=== PATIENT | female | born 1965 | race African-American/Black ===

== ENCOUNTER 2023-02-24 15:39 | Inpatient (IN) | payer OTHER, BC ==
--- OUTSIDE RECORDS SUMMARY | 2023-02-24 15:56 | XMS REPORT | Continuity of Care Document ---
:1965 Author Organization [facility] t Address [address] [place] [address] [place] [id number] Care Team Providers Name Role Phone Daphne Moncada Primary Care Physician PENG WATTS Attending Clinician Unavailable YAO BRADSHAW Attending Clinician Unavailable Bello CASTRO, [facility] Attending Clinician DAPHNE MONCADA Attending Clinician Unavailable MICHELLE MARADIAGA Attending Clinician Unavailable IGOR MELENDEZ Attending Clinician Unavailable Lacey Mo MA Attending Clinician Unavailable Yao Bradshaw MD Attending Clinician Livia Mccartney MA Attending Clinician Unavailable Handy Beavers APRN Attending Clinician BETHANIE CIFUENTES Attending Clinician Unavailable PENG WATTS M.D. Attending Clinician Unavailable RUTHIE VERA Attending Clinician Unavailable Payers Payer Name Policy Type Policy Number Effective Date Expiration Date S ource BCBSTX PPO [id number] 2004 00:00:00 BCBS FED SELECT [id number] 2004 00:00:00 Problems Condition Condition Condition Status Onset Resolution Last Treating Co mments Source Name Details Category Date Date Treatment Clinician Date Primary Primary Disease Active 2020-09 Last [facility] osteoarthr osteoarthr 0-31 [facility] itis of itis of 00:00: t & Plan: both knees both knees 00 Formattin g of this note might be different from the original. Patient tolerated procedure well. Patient instructe d to return immediate ly for increased pain, swelling, difficult y walking or any other concerns. In the meantime, will follow up next week for next injection in the series. She was not feeling any relief. We discussed that after this third shot if she still has no relief we may need to perform a steroid injection . 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 06-01 00:00: Hospita 00 l Mixed Mixed Disease Active [facility] hyperlipid hyperlipid 06-01 emia emia 00:00: Hospita 00 l Borderline Borderline Disease Active M [facility]i diabetes diabetes 06-01 00:00: Hospita 00 l Anxiety Anxiety Disease Active [facility] 06-01 00:00: Hospita 00 l Acute tear Acute tear Disease Active U T lateral lateral 5-26 Health meniscus, meniscus, 00:00: right, right, 00 initial initial encounter encounter Arthritis Arthritis Disease Active [facility] of left of left 4-28 Health knee knee 00:00: 00 Chondromal Chondromal Disease Active U T acia of acia of 3-21 Health patella, patella, 00:00: right right 00 Localized Localized Disease Active Last UT primary primary 3- Assessmen Healt h osteoarthr osteoarthr 00:00: t & Plan: itis of itis of 00 Formattin lower leg, lower leg, g of this right right note might be different from the original. Discussed with Renea Wing cristal stiles treatment options for osteoarth ritis. Treatment included pain medicatio n (NSAID's and topicals) , bracing, physical therapy, cortisone injection s, hyaluroni c acid, PRP, and bone grafting. We discussed the CANTRELL injection s and patient will let me know if she would like to try. Acute pain Acute pain Disease Active U T of both of both 3- Health knees knees 00:00: 00 Acute pain Acute pain Disease Active [facility] T of both of both 3-02 Health knees knees 00:00: 00 Bilateral Bilateral Disease Active [facility] carotid carotid 2-18 st bruits bruits 00:00: Hospita 00 l SOB SOB Disease Active [facility] (shortness (shortness 2-18 st of breath) of breath) 00:00: Ho spita 00 l Elevated Elevated Disease Active [facility] di liver liver [address] enzymes enzymes 00:00: Hospita 00 l Acute Acute Disease Active [facility] medial medial 4-05 Health meniscal meniscal 00:00: tear, tear, 00 right, right, initial initial encounter encounter Apnea Apnea Disease Active [facility] 6 st 00:00: Hospita 00 l Family Family Disease Active Overview: Method i history of history of 02-[address] heart heart 00:00: g of this Hospita disease disease 00 note l might be different from the original. mother - CHF, sister - SD, sister- pacemaker Essential Essential Disease Active [facility] hypertensi hypertensi 3-15 st on on 00:00: Hospita 00 l Primary Primary Disease Active [facility] insomnia insomnia 3-15 st 00:00: Hospita 00 l Stress Stress Disease Active [facility] 3-15 st 00:00: Hospita 00 l Palpitatio Palpitatio Disease Active M ethodi ns ns 3-15 st 00:00: Hospita 00 l Chronic Chronic Disease Active [facility] pain of pain of 3-15 st right knee right knee 00:00: Ho spita 00 l Maltrackin Maltrackin Disease Active U T g of right g of right 10-11 He alth patella patella 00:00: 00 KNEE PAIN, KNEE Condition Active 2014-12-13 [facility] RIGHT PAIN, 12-13 08:57:11 l RIGHT 00:00: Trevon Active 00 12/13/2014 Condition 12/13/2014 [facility] Group SCREENING SCREENING Condition Active 2014-12-13 [facility] FOR FOR 06-06 08:57:11 l MALIGNANT MALIGNANT 00:00: Herm nella NEOPLASM NEOPLASM 00 OF THE OF THE CERVIX CERVIX Active 06/06/2014 Condition 12/13/2014 Medical Group LEUKORRHEA LEUKORRHE Condition Active 2014-12-13 Memoria A Active 06-06 08:57:11 l 06/06/2014 00:00: Robles n Condition 00 12/13/2014 Medical Group HEADACHE HEADACHE Condition Active 2014-12-13 Memoria Active 05-06 08:57:11 l 05/06/2014 00:00: Robles n Condition 00 12/13/2014 Medical Group PARESTHESI PARESTHES Condition Active 2014-12-13 [facility]oria IAS Active 05-06 08:57:11 l 05/06/2014 00:00: Robles n Condition 00 12/13/2014 Medical Group ANXIETY ANXIETY Condition Active 2014-12-13 Memoria Active 02-01 08:57:11 l 02/01/2014 00:00: Robles n Condition 00 12/13/2014 Medical Group IRREGULAR IRREGULAR Condition Active 2014-12-13 [facility] MENSES MENSES 12-10 08:57:11 l Active 00:00: Trevon 12/10/2013 00 Condition 12/13/2014 Medical Group LOW BACK LOW BACK Condition Active 2014-12-13 [facility] PAIN PAIN 12-10 08:57:11 l Active 00:00: Tervon 12/10/2013 00 Condition 12/13/2014 Medical Group B12 B12 Condition Active 2014-12-13 Mem oria DEFICIENCY DEFICIENCY 11-02 08:57:11 l Active 00:00: Trevon 11/02/2013 00 Condition 12/13/2014 Medical Group HYPERTENSI HYPERTENS Condition Active 2012-092014-12-13 Memoria ON ION Active 11-11 08:57:11 l 09/10/2013 00:00: Robles eduardo Condition 00 12/13/2014 Medical Group DIZZINESS DIZZINESS Condition Active 2012-092014-12-13 Memoria Active 11-11 08:57:11 l 09/10/2013 00:00: Robles eduardo Condition 00 12/13/2014 Medical Group TOBACCO TOBACCO Condition Active 2012-092014-12-13 [facility] USER USER 11-11 08:57:11 l Active 00:00: Trevon 09/10/2013 00 Condition 12/13/2014 Medical Group CORONARY CORONARY Condition Active 2012-092014-12-13 [facility] ARTERY ARTERY 11-11 08:57:11 l DISEASE, DISEASE, 00:00: Robles eduardo FAMILY HX FAMILY HX 00 Active 09/10/2013 Condition 12/13/2014 Medical Group OVARIAN OVARIAN Condition Active 2011-092014-12-13 [facility]oria CYST, CYST, 0-24 08:57:11 l RIGHT RIGHT 00:00: Trevon Active 00 07/08/2012 Condition 12/13/2014 Medical Group HEARTBURN HEARTBURN Condition Active 2011-092014-12-13 Memoria Active 0-15 08:57:11 l 06/29/2012 00:00: Robles n Condition 00 12/13/2014 Medical Group VARICOSE VARICOSE Condition Active 2011-092014-12-13 Mem[facility] VEINS VEINS 0-15 08:57:11 l LOWER LOWER 00:00: Trevon EXTREMITIE EXTREMITIE 00 S S W/INFLAMMA W/INFLAMMA TION TION Active 06/29/2012 Condition 12/13/2014 Medical Group DISTURBANC DISTURBAN Condition Active 2011-092014-12-13 Memoria E OF SKIN CE OF SKIN 0-15 08:57:11 l SENSATION SENSATION 00:00: Herm nella Active 00 06/29/2012 Condition 12/13/2014 [facility] Group Acute Acute Problem Active [facility] medial medial Physici meniscal meniscal ans tear, tear, right, right, subsequent subsequent encounter encounter Acute Acute Problem Active UT lateral lateral Physici meniscus meniscus ans tear of tear of right right knee, knee, subsequent subsequent encounter encounter Localized Localized Problem Active UT primary primary Physici osteoarthr osteoarthr an s itis of itis of lower leg, lower leg, right right History of History of Problem Resolve UT back pain back pain d Phys ici ans Arthritis Arthritis Problem Active UT of left of left Physici knee knee ans History of History of Problem Resolve UT hypertensi hypertensi d Ph ysici on on ans Maltrackin Maltrackin Problem Active U T g of right g of right Ph ysici patella patella ans Limb pain Limb pain Problem Active UT Physici ans Acute Acute Problem Active UT medial medial Physici meniscal meniscal ans tear, tear, right, right, initial initial encounter encounter Acute Acute Problem Active UT lateral lateral Physici meniscal meniscal ans tear, tear, right, right, initial initial encounter encounter Acute pain Acute pain Problem Active U T of both of both Physici knees knees ans Chondromal Chondromal Problem Active U T acia of acia of Physici patella, patella, ans right right History of Past Illness Condition Condition Condition Status Onset Resolution Last Treating Co mments Source Name Details Category Date Date Treatment Clinician Date ROUTINE ROUTINE Condition Inactiv 2014-12-13 2014-12-13 [facility] GYNECOLOGI GYNECOLOGI e 05-06 08:57:11 08:57:11 l KATELIN KATELIN 00:00: Trevon EXAMINATIO EXAMINATIO 00 N N Inactive 05/06/2014 Condition 12/13/2014 [facility] Group SCREENING SCREENING Condition Inactiv 2014-12-13 2014-12-13 [facility] FOR FOR e 05-06 08:57:11 08:57:11 l DIABETES DIABETES 00:00: Robles n MELLITUS MELLITUS 00 Inactive 05/06/2014 Condition 12/13/2014 [facility] Group SCREENING SCREENING Condition Inactiv 2014-12-13 2014-12-13 [facility] FOR MLIG FOR MLIG e 12-11 08:57:11 08:57:11 l NEOP, NEOP, 00:00: Trevon BREAST, BREAST, 00 NOS NOS Inactive 12/11/2012 Condition 12/13/2014 Medical Group PELVIC PELVIC Condition Inactiv 2011-092014-12-13 2014-12-13 [facility] PAIN PAIN e 0-15 08:57:11 08:57:11 l Inactive 00:00: Trevon 06/29/2012 00 Condition 12/13/2014 Medical Group HIP PAIN, HIP PAIN, Condition Inactiv 2011-092014-12-13 2014-12-13 [facility] RIGHT RIGHT e 0-15 08:57:11 08:57:11 l Inactive 00:00: Trevon 06/29/2012 00 Condition 12/13/2014 Medical Group VACCINE VACCINE Condition Inactiv 2011-092014-12-13 2014-12-13 [facility] AGAINST AGAINST e 0-15 08:57:11 08:57:11 l INFLUENZA INFLUENZA 00:00: Sergei carmen Inactive 00 06/29/2012 Condition 12/13/2014 Medical Group TRANSAMINA TRANSAMIN Condition Inactiv 2011-2014-12-13 2014-12-13 [facility] SES, ASES, e 03-30 08:57:11 08:57:11 l SERUM, SERUM, 00:00: Trevon ELEVATED ELEVATED 00 Inactive 03/30/2012 Condition 12/13/2014 Medical Group PHYSICAL PHYSICAL Condition Inactiv 2014-12-13 2014-12-13 [facility] EXAMINATIO EXAMINATIO e 03-20 08:57:11 08:57:11 l N N Inactive 00:00: Robles eduardo 03/20/2012 00 Condition 12/13/2014 Medical Group VITAMIN D VITAMIN D Condition Inactiv 2014-12-13 2014-12-13 [facility] DEFICIENCY DEFICIENCY e 03-20 08:57:11 08:57:11 l Inactive 00:00: Trevon 03/20/2012 00 Condition 12/13/2014 Medical Group FATIGUE FATIGUE Condition Inactiv 2014-12-13 2014-12-13 [facility] Inactive e 03-20 08:57:11 08:57:11 l 03/20/2012 00:00: Robles eduardo Condition 00 12/13/2014 Medical Group GYNECOLOGI GYNECOLOG Condition Inactiv 2014-12-13 2014-12-13 [facility] KATELIN ICAL e 03-20 08:57:11 08:57:11 l EXAMINATIO EXAMINATIO 00:00: Bhaskar Eduardo ROUTINE N ROUTINE 00 Inactive 03/20/2012 Condition 12/13/2014 Medical Group NEED PROPH NEED Condition Inactiv 2014-12-13 2014-12-13 [facility] VAC W/COMB PROPH VAC e 03-20 08:57:11 08:57:11 l DIPHTH-TET W/COMB 00:00: Robles eduardo ANUS-PERTU DIPHTH-TET 00 SS VAC ANUS-PERTU SS VAC Inactive 03/20/2012 Condition 12/13/2014 Medical Group Allergies, Adverse Reactions, Alerts Allergy Allergy Status Severity Reaction(s) Onset Inactive Treating Comm ents Source Name Type Date Date Clinician NO KNOWN Drug Active Univers [facility]ERG[facility] Family History Family Member Diagnosis Comments Start Date Stop Date Source Unknown Family Family history of Family History [facility] Member diabetes mellitus Unknown Family Family history of Family History [facility] Heart trouble Unknown Family Family history of Family History [facility] High blood pressure (not hypertension) Natural father Heart attack [facility] Natural mother [facility] Social History Social Habit Start Date Stop Date Quantity Comments Source History of tobacco Smokes tobacco [facility] use daily Hospital Gender identity [facility] Sexual orientation [facility] Exposure to Not sure [facility] SARS-CoV-2 (event) Alcohol intake 2023-01-29 2023-01-29 Current drinker [facility] 00:00:00 00:00:00 of alcohol Hospital (finding) History of Social 2023-01-29 2023[facility]01-29 [facility] Hospital Cigarettes smoked 2022-06-07 2022-06-07 [facility] current (pack per 00:00:00 00:00:00 Hospita l day) - Reported Tobacco use and 2022-06-07 2022-06-07 Smokeless [facility] exposure 00:00:00 00:00:00 tobacco non-user Hospital Sex Ass[birth year] At [birth year] [facility] 00:00:00 00:00:00 Hospital Smoking Status Start Date Stop Date Source Smokes tobacco daily 2022-06-07 00:00:00 [facility] Occasional tobacco smoker 2021-02-07 00:00:00 [facility] Medications Ordered Filled Start Stop Current Ordering Indication Dosage Frequency Signature Comments Components Source Medication Medication Date Date Medication? Clinician (SIG) Name Name apixaban Yes 2.5mg Q.5D Take 2.5 Meth samir (ELIQUIS) 5 5-[address] mg tablet 13:16: mouth 2 Hospi ta 30 (two) l times a day. famciclovir Yes 500mg QD Take 1 [facility] (FAMVIR) 5-[address] 500 MG 13:16: (500 mg Hospita tablet 30 total) by l mouth daily. dexamethaso Yes 40mg Q7D Take 10 [facility] ne 5-[address] (DECADRON) 13:16: (40 mg Hospi ta 4 MG tablet 30 total) by l mouth once a week. weekly daratumumab Yes Infuse Meth samir (Darzalex) 5-[address] 20 mg/mL 13:16: venous Hospita solution 30 catheter. l Inject every once a month lenalidomid 2022- No 10mg QD Take 10 mg [facility] e 01-[address] (REVLIMID) 15:56: 00:00 daily. 21 H ospita 10 mg 00 :00 on and 7 l capsule days off ixazomib 2022- No 4mg Q1W Take 4 mg Met [facility] (Ninlaro) 4 01-[address] mg capsule 14:40: 00:00 every 7 Hos janiya 30 :00 days. l gabapentin Yes 300mg QD Take 1 Meth samir (NEURONTIN) 01-[address] 300 mg 00:00: (300 mg Hospita capsule 00 total) by l mouth nightly. For leg numbness losartan-hy Yes [id number] 1{tbl} QD Take 1 [facility] drochloroth 01-[address] iazide 00:00: mouth Hospita (HYZAAR) 00 daily. l 100-25 mg per tablet ALPRAZolam 2023- Yes [id number] .5mg QD Take 1 [facility] (Xanax) 0.5 01-[address] MG tablet 00:00: 04:59 (0.5 mg Hosp christa 00 :00 total) by l mouth nightly as needed for anxiety. zolpidem 2023- Yes [id number] 10mg QD Take 1 M ethodi (AMBIEN) 10 01-10 tablet (10 s t mg tablet 00:00: 04:59 mg total) Ho spita 00 :00 by mouth l nightly as needed for sleep. scopolamine 2022- No 1{patch Q72H Place 1 [facility] (Transderm- 12-17 } patch on st Scop) 1 mg 00:00: 00:00 the skin Ho spita over 3 days 00 :00 every l third day. losartan-hy 2022- No [id number] 1{tbl} QD Take 1 [facility] drochloroth 10-[address] iazide 00:00: 00:00 mouth Hospita (HYZAAR) 00 :00 daily. l 100-25 mg per tablet ALPRAZolam 2022- No [id number] .5mg QD Take 1 [facility] (Xanax) 0.5 06-[address] MG tablet 00:00: 00:00 (0.5 mg [facility]osp [facility]a 00 :00 total) by l mouth nightly as needed for anxiety. zolpidem 2022- No [id number] 10mg QD Take 1 M ethodi (AMBIEN) 10 06-07 tablet (10 s t mg tablet 00:00: 00:00 mg total) Ho spita 00 :00 by mouth l nightly as needed for sleep. losartan-hy 2022- No [id number] TAKE 1 [facility] drochloroth 05-[address] iazide 00:00: 00:00 MOUTH Hospita (HYZAAR) 00 :00 EVERY DAY l 100-25 mg per tablet losartan-hy 2021- No [id number] TAKE 1 [facility] drochloroth 02-[address] iazide 00:00: 00:00 MOUTH Hospita (HYZAAR) 00 :00 EVERY DAY l 100-25 mg per tablet scopolamine 2021- No 1{patch Q72H Place 1 [facility] (Transderm- 5-16 07-22 } patch on st Scop) 1 mg 00:00: 00:00 the skin Ho spita over 3 days 00 :00 every l third day. ketoconazol Yes Apply to Me thodi e (NIZORAL) [address] 2 % cream 00:00: area once Hos janiya 00 daily for l 2 weeks zolpidem 2021- No [id number] 10mg QD Take 1 M ethodi (AMBIEN) 10 12-05 tablet (10 s t mg tablet 00:00: 00:00 mg total) Ho spita 00 :00 by mouth l nightly as needed for sleep. ALPRAZolam 2021- No [id number] .5mg QD Take 1 [facility] (Xanax) 0.5 12-[address] MG tablet 00:00: 00:00 (0.5 mg Hosp christa 00 :00 total) by l mouth nightly as needed for anxiety. Sodium 2020-09- No [id number] 25mg UT Hyaluronate 09-23 Health solution 19:15: 19:15 prefilled 55 :00 syringe 25 mg Sodium 2020-09- No [id number] 25mg UT Hyaluronate 09-23 Health solution 19:15: 19:15 prefilled 55 :00 syringe 25 mg Sodium 2020-09- No [id number] 25mg 25 mg, UT Hyaluronate 09-23 [facility] e[facility] solution 19:15: 19:15 cular, at prefilled 55 :00 2.5 mL/hr, syringe 25 Once PRN mg Procedure, Starting on Fri07/24/21 at 1315, For 1 dose Sodium 2020-09 No [id number] 25mg 25 mg, UT Hyaluronate 09-23 [facility]-con[facility] H ealth solution 19:15: 19:15 cular, at prefilled 55 :00 2.5 mL/hr, syringe 25 Once PRN mg Procedure, Starting on Fri07/24/21 at 1315, For 1 dose meloxicam 2020-09- No [id number] 15mg QD Take 1 UT (Mobic) 15 09-23 tablet (15 He alth MG tablet 00:00: 05:59 mg total) 00 :00 by mouth 1 (one) time each day. Sodium 2020-09- No [id number] 25mg UT Hyaluronate 09-16 Health solution 18:00: 18:00 prefilled 50 :00 syringe 25 mg Sodium 2020-09- No [id number] 25mg UT Hyaluronate 09-16 Health solution 18:00: 18:00 prefilled 50 :00 syringe 25 mg Sodium 2020-09- No [id number] 25mg 25 mg, UT Hyaluronate 09-16 [facility] e[facility] solution 18:00: 18:00 cular, at prefilled 50 :00 2.5 mL/hr, syringe 25 Once PRN mg Procedure, Starting on Fri07/17/21 at 1300, For 1 dose Sodium 2020-09- No [id number] 25mg 25 mg, UT Hyaluronate 09-16 [facility]-con[facility] e[facility] solution 18:00: 18:00 cular, at prefilled 50 :00 2.5 mL/hr, syringe 25 Once PRN mg Procedure, Starting on Fri07/17/21 at 1300, For 1 dose Sodium 2020-09- No [id number] 25mg UT Hyaluronate 0-26 - Health solution 18:23: 18:23 prefilled 16 :00 syringe 25 mg Sodium 2020-09- No [id number] 25mg UT Hyaluronate 0-26 07-10 Health solution 18:23: 18:23 prefilled 16 :00 syringe 25 mg Sodium 2020-09 No [id number] 25mg 25 mg, UT Hyaluronate 0-26 07-10 [facility] e[facility] solution 18:23: 18:23 cular, at prefilled 16 :00 2.5 mL/hr, syringe 25 Once PRN mg Procedure, Starting on Fri07/10/21 at 1323, For 1 dose Sodium 2020-09 No [id number] 25mg 25 mg, UT Hyaluronate 0-26 - [facility] e[facility] solution 18:23: 18:23 cular, at prefilled 16 :00 2.5 mL/hr, syringe 25 Once PRN mg Procedure, Starting on Fri07/10/21 at 1323, For 1 dose Supartz FX 2020-0 Yes [id number] INJECT ONE U T 25 MG/2.5ML 9-17 PRE-FILLED He alth solution 00:00: SYRINGE prefilled 00 INTRA-CONNOR syringe CULARLY INTO EACH KNEE WEEKLY FOR FIVE WEEKS. Supartz FX 2020-0 Yes [id number] INJECT ONE U T 25 MG/2.5ML 9-17 PRE-FILLED He alth solution 00:00: SYRINGE prefilled 00 INTRA-CONNOR syringe CULARLY INTO EACH KNEE WEEKLY FOR FIVE WEEKS. Supartz FX 2020-0 Yes [id number] INJECT ONE U T 25 MG/2.5ML 9-17 PRE-FILLED He alth solution 00:00: SYRINGE prefilled 00 INTRA-CONNOR syringe CULARLY INTO EACH KNEE WEEKLY FOR FIVE WEEKS. Supartz FX 2020-0 Yes [id number] INJECT ONE U T 25 MG/2.5ML 9-17 PRE-FILLED He alth solution 00:00: SYRINGE prefilled 00 INTRA-CONNOR syringe CULARLY INTO EACH KNEE WEEKLY FOR FIVE WEEKS. Supartz FX 2020-0 Yes [id number] INJECT ONE U T 25 MG/2.5ML 9-17 PRE-FILLED He alth solution 00:00: SYRINGE prefilled 00 INTRA-CONNOR syringe CULARLY INTO EACH KNEE WEEKLY FOR FIVE WEEKS. meloxicam 2020-0 Yes [id number] TAKE 1 U T (Mobic) 15 7-23 TABLET BY Heal th MG tablet 00:00: MOUTH 00 EVERY DAY NEEDED FOR PAIN meloxicam 2020-0 Yes [id number] TAKE 1 U T (Mobic) 15 7-23 TABLET BY Heal th MG tablet 00:00: MOUTH 00 EVERY DAY NEEDED FOR PAIN meloxicam 2020-0 Yes [id number] TAKE 1 U T (Mobic) 15 7-23 TABLET BY Heal th MG tablet 00:00: MOUTH 00 EVERY DAY NEEDED FOR PAIN meloxicam 2020-0 Yes [id number] TAKE 1 U T (Mobic) 15 7-23 TABLET BY Heal th MG tablet 00:00: MOUTH 00 EVERY DAY NEEDED FOR PAIN meloxicam 202-0 Yes [id number] TAKE 1 U T (Mobic) 15 7-23 TABLET BY Heal th MG tablet 00:00: MOUTH 00 EVERY DAY NEEDED FOR PAIN meloxicam 202-0 Yes [id number] TAKE 1 U T (Mobic) 15 7-23 TABLET BY Heal th MG tablet 00:00: MOUTH 00 EVERY DAY NEEDED FOR PAIN meloxicam 202-0 Yes [id number] TAKE 1 U T (Mobic) 15 7-23 TABLET BY Heal th MG tablet 00:00: MOUTH 00 EVERY DAY NEEDED FOR PAIN meloxicam 202-0 Yes [id number] TAKE 1 U T (Mobic) 15 7-23 TABLET BY Heal th MG tablet 00:00: MOUTH 00 EVERY DAY NEEDED FOR PAIN hydroCHLORO 2020-0 Yes 25mg 25 mg. UT thiazide 5-26 Health (HYDRODiuri 17:34: l) 25 MG 16 tablet losartan 2020-0 Yes 100mg 100 mg. UT (Cozaar) 5- Health 100 MG 17:34: tablet 16 hydroCHLORO 2020-0 Yes 25mg 25 mg. UT thiazide 5-26 Health (HYDRODiuri 17:34: l) 25 MG 16 tablet losartan 2020-0 Yes 100mg 100 mg. UT (Cozaar) 5-26 Health 100 MG 17:34: tablet 16 losartan 2021-0 Yes 100mg 100 mg. UT (Cozaar) 5-26 Health 100 MG 12:34: tablet 16 hydroCHLORO 202-0 Yes 25mg 25 mg. UT thiazide 5-26 Health (HYDRODiuri 12:34: l) 25 MG 16 tablet losartan 2020-0 Yes 100mg 100 mg. UT (Cozaar) 5-26 Health 100 MG 12:34: tablet 16 hydroCHLORO 2021-0 Yes 25mg 25 mg. UT thiazide 5-26 Health (HYDRODiuri 12:34: l) 25 MG 16 tablet losartan 202-0 Yes 100mg 100 mg. UT (Cozaar) 5-26 Health 100 MG 12:34: tablet 16 hydroCHLORO 202-0 Yes 25mg 25 mg. UT thiazide 5- Health (HYDRODiuri 12:34: l) 25 MG 16 tablet losartan 2020-0 Yes 100mg 100 mg. UT (Cozaar) 5-26 Health 100 MG 12:34: tablet 16 hydroCHLORO 202-0 Yes 25mg 25 mg. UT thiazide 5- Health (HYDRODiuri 12:34: l) 25 MG 16 tablet losartan 2020-0 Yes 100mg 100 mg. UT (Cozaar) 5-26 Health 100 MG 12:34: tablet 16 hydroCHLORO 2020-0 Yes 25mg 25 mg. UT thiazide 5- Health (HYDRODiuri 12:34: l) 25 MG 16 tablet losartan 2020-0 Yes 100mg 100 mg. UT (Cozaar) 5-26 Health 100 MG 12:34: tablet 16 hydroCHLORO 202-0 Yes 25mg 25 mg. UT thiazide 5-26 Health (HYDRODiuri 12:34: l) 25 MG 16 tablet losartan 202-0 Yes 100mg 100 mg. UT (Cozaar) 5-26 Health 100 MG 12:34: tablet 16 hydroCHLORO 2021-0 Yes 25mg 25 mg. UT thiazide 5-26 Health (HYDRODiuri 12:34: l) 25 MG 16 tablet losartan 2020-0 Yes 100mg 100 mg. UT (Cozaar) 5-26 Health 100 MG 12:34: tablet 16 hydroCHLORO 2021-0 Yes 25mg 25 mg. UT thiazide 5-26 Health (HYDRODiuri 12:34: l) 25 MG 16 tablet hydroCHLORO 2021-0 Yes 25mg 25 mg. UT thiazide 5-26 Health (HYDRODiuri 12:34: l) 25 MG 16 tablet losartan 2020-0 Yes 100mg 100 mg. UT (Cozaar) 5-26 Health 100 MG 12:34: tablet 16 famciclovir 2020-0 Yes 500mg QD Take 500 U T (Famvir) 5-25 mg by Health 500 MG 00:00: mouth 1 tablet 00 (one) time each day. dexamethaso 2021-0 Yes 40mg Take 40 mg UT ne 5-25 by mouth Health (Decadron) 00:00: every 7 4 MG tablet 00 (seven) days. apixaban 202-0 Yes 2.5mg Q12H Take 2.5 UT (Eliquis) 5 5-25 mg by Health MG tablet 00:00: mouth 00 every 12 (twelve) hours. famciclovir 2020-0 Yes 500mg QD Take 500 U T (Famvir) 5-25 mg by Health 500 MG 00:00: mouth 1 tablet 00 (one) time each day. dexamethaso 1-0 Yes 40mg Take 40 mg UT ne 5-25 by mouth Health (Decadron) 00:00: every 7 4 MG tablet 00 (seven) days. apixaban 1-0 Yes 2.5mg Q12H Take 2.5 UT (Eliquis) 5 5-25 mg by Health MG tablet 00:00: mouth 00 every 12 (twelve) hours. famciclovir 2020-0 Yes 500mg QD Take 500 U T (Famvir) 5-25 mg by Health 500 MG 00:00: mouth 1 tablet 00 (one) time each day. dexamethaso 2021-0 Yes 40mg Take 40 mg UT ne 5-25 by mouth Health (Decadron) 00:00: every 7 4 MG tablet 00 (seven) days. apixaban 2021-0 Yes 2.5mg Q12H Take 2.5 UT (Eliquis) 5 5-25 mg by Health MG tablet 00:00: mouth 00 every 12 (twelve) hours. famciclovir 2021-0 Yes 500mg QD Take 500 U T (Famvir) 5-25 mg by Health 500 MG 00:00: mouth 1 tablet 00 (one) time each day. dexamethaso 2021-0 Yes 40mg Take 40 mg UT ne 5-25 by mouth Health (Decadron) 00:00: every 7 4 MG tablet 00 (seven) days. apixaban 2021-0 Yes 2.5mg Q12H Take 2.5 UT (Eliquis) 5 5-25 mg by Health MG tablet 00:00: mouth 00 every 12 (twelve) hours. famciclovir 2021-0 Yes 500mg QD Take 500 U T (Famvir) 5-25 mg by Health 500 MG 00:00: mouth 1 tablet 00 (one) time each day. dexamethaso 2021-0 Yes 40mg Take 40 mg UT ne 5-25 by mouth Health (Decadron) 00:00: every 7 4 MG tablet 00 (seven) days. apixaban 2021-0 Yes 2.5mg Q12H Take 2.5 UT (Eliquis) 5 5-25 mg by Health MG tablet 00:00: mouth 00 every 12 (twelve) hours. famciclovir 2021-0 Yes 500mg QD Take 500 U T (Famvir) 5-25 mg by Health 500 MG 00:00: mouth 1 tablet 00 (one) time each day. dexamethaso 2021-0 Yes 40mg Take 40 mg UT ne 5-25 by mouth [facility] (Decadron) 00:00: every 7 4 MG tablet 00 (seven) days. apixaban 2021-0 Yes 2.5mg Q12H Take 2.5 UT (Eliquis) 5 5-25 mg by Health MG tablet 00:00: mouth 00 every 12 (twelve) hours. famciclovir 2021-0 Yes 500mg QD Take 500 U T (Famvir) 5-25 mg by [facility] 500 MG 00:00: mouth 1 tablet 00 (one) time each day. dexamethaso 2021-0 Yes 40mg Take 40 mg UT ne 5-25 by mouth [facility] (Decadron) 00:00: every 7 4 MG tablet 00 (seven) days. apixaban 2021-0 Yes 2.5mg Q12H Take 2.5 UT (Eliquis) 5 5-25 mg by Health MG tablet 00:00: mouth 00 every 12 (twelve) hours. famciclovir 2021-0 Yes 500mg QD Take 500 U T (Famvir) 5-25 mg by Health 500 MG 00:00: mouth 1 tablet 00 (one) time each day. dexamethaso 2021-0 Yes 40mg Take 40 mg UT ne 5-25 by mouth [facility] (Decadron) 00:00: every 7 4 MG tablet 00 (seven) days. apixaban 2021-0 Yes 2.5mg Q12H Take 2.5 UT (Eliquis) 5 5-25 mg by Health MG tablet 00:00: mouth 00 every 12 (twelve) hours. famciclovir 2021-0 Yes 500mg QD Take 500 U T (Famvir) 5-25 mg by [facility] 500 MG 00:00: mouth 1 tablet 00 (one) time each day. dexamethaso 2021-0 Yes 40mg Take 40 mg UT ne 5-25 by mouth [facility] (Decadron) 00:00: every 7 4 MG tablet 00 (seven) days. apixaban 2021-0 Yes 2.5mg Q12H Take 2.5 UT (Eliquis) 5 5-25 mg by Health MG tablet 00:00: mouth 00 every 12 (twelve) hours. famciclovir 2021-0 Yes 500mg QD Take 500 U T (Famvir) 5-25 mg by [facility] 500 MG 00:00: mouth 1 tablet 00 (one) time each day. dexamethaso 2021-0 Yes 40mg Take 40 mg UT ne 5-25 by mouth [facility] (Decadron) 00:00: every 7 4 MG tablet 00 (seven) days. apixaban 2021-0 Yes 2.5mg Q12H Take 2.5 UT (Eliquis) 5 5-25 mg by Health MG tablet 00:00: mouth 00 every 12 (twelve) hours. apixaban 2021-0 Yes 2.5mg Q12H Take 2.5 UT (Eliquis) 5 5-25 mg by Health MG tablet 00:00: mouth 00 every 12 (twelve) hours. famciclovir 2021-0 Yes 500mg QD Take 500 U T (Famvir) 5-25 mg by Health 500 MG 00:00: mouth 1 tablet 00 (one) time each day. dexamethaso 2021-0 Yes 40mg Take 40 mg UT ne 5-25 by mouth [facility] (Decadron) 00:00: every 7 4 MG tablet 00 (seven) days. Revlimid 10 2020-0 Yes UT MG capsule 5-24 Health 00:00: 00 Ninlaro 2.3 2020-0 Yes UT MG capsule 5-24 Health 00:00: 00 Revlimid 10 2020-0 Yes UT MG capsule 5-24 Health 00:00: 00 Ninlaro 2.3 2020-0 Yes UT MG capsule 5-24 Health 00:00: 00 Revlimid 10 2020-0 Yes UT MG capsule 5-24 Health 00:00: 00 Ninlaro 2.3 2020-0 Yes UT MG capsule 5-24 Health 00:00: 00 Revlimid 10 2020-0 Yes UT MG capsule 5-24 Health 00:00: 00 Ninlaro 2.3 2020-0 Yes UT MG capsule 5-24 Health 00:00: 00 Revlimid 10 2020-0 Yes UT MG capsule 5-24 Health 00:00: 00 Ninlaro 2.3 2020-0 Yes UT MG capsule 5-24 Health 00:00: 00 Revlimid 10 2020-0 Yes UT MG capsule 5-24 Health 00:00: 00 Ninlaro 2.3 2020-0 Yes UT MG capsule 5-24 Health 00:00: 00 Revlimid 10 2020-0 Yes UT MG capsule 5-24 Health 00:00: 00 Ninlaro 2.3 2020-0 Yes UT MG capsule 5-24 Health 00:00: 00 Revlimid 10 2020-0 Yes UT MG capsule 5-24 Health 00:00: 00 Ninlaro 2.3 2020-0 Yes UT MG capsule 5-24 Health 00:00: 00 Revlimid 10 2020-0 Yes UT MG capsule 5-24 Health 00:00: 00 Ninlaro 2.3 2020-0 Yes UT MG capsule 5-24 Health 00:00: 00 Revlimid 10 2020-0 Yes UT MG capsule 5-24 Health 00:00: 00 Ninlaro 2.3 2020-0 Yes UT MG capsule 5-24 Health 00:00: 00 Revlimid 10 2020-0 Yes UT MG capsule 5-24 Health 00:00: 00 Ninlaro 2.3 2020-0 Yes UT MG capsule 5-24 Health 00:00: 00 Meloxicam Meloxicam 2020-0 Yes HANDY TAKE 1 UT 15 MG Oral 15 MG Oral 4-27 SABBARA TABLET BY [facility] Tablet Tablet 00:00: PRINTED CIRCUIT BOARD PANELS DEBURRER MOUTH ans 00 DAILY NEEDED FOR PAIN zolpidem 2018-09- No 10mg QD Take 10 mg UT (Ambien) 10 18 05-26 by mouth 1 H ealth MG tablet 00:00: 04:59 (one) time 00 :00 each day. zolpidem 2018-09- No 10mg QD Take 10 mg UT (Ambien) 10 10-02 05-26 by mouth 1 H ealth MG tablet 00:00: 04:59 (one) time 00 :00 each day. zolpidem 2018-09- No 10mg QD Take 10 mg UT (Ambien) 10 10-02 05-26 by mouth 1 H ealth MG tablet 00:00: 04:59 (one) time 00 :00 each day. zolpidem 2018-09- No 10mg QD Take 10 mg UT (Ambien) 10 10-02 05-26 by mouth 1 H ealth MG tablet 00:00: 04:59 (one) time 00 :00 each day. zolpidem 2018-09- No 10mg QD Take 10 mg UT (Ambien) 10 10-02 05-26 by mouth 1 H ealth MG tablet 00:00: 04:59 (one) time 00 :00 each day. zolpidem 2018-09- No 10mg QD Take 10 mg UT (Ambien) 10 10-02 05-26 by mouth 1 H ealth MG tablet 00:00: 04:59 (one) time 00 :00 each day. zolpidem 2018-09- No 10mg QD Take 10 mg UT (Ambien) 10 10-02 05-26 by mouth 1 H ealth MG tablet 00:00: 04:59 (one) time 00 :00 each day. zolpidem 2018-09- No 10mg QD Take 10 mg UT (Ambien) 10 10-02 05-26 by mouth 1 H ealth MG tablet 00:00: 04:59 (one) time 00 :00 each day. zolpidem 2018-09- No 10mg QD Take 10 mg UT (Ambien) 10 10-02 05-26 by mouth 1 H ealth MG tablet 00:00: 04:59 (one) time 00 :00 each day. zolpidem 2018-09- No 10mg QD Take 10 mg UT (Ambien) 10 10-02 by mouth 1 H ealth MG tablet 00:00: 04:59 (one) time 00 :00 each day. zolpidem 2018-09- No 10mg QD Take 10 mg UT (Ambien) 10-02 by mouth 1 H ealth MG tablet 00:00: 04:59 (one) time 00 :00 each day. ALPRAZolam 2018-09 Yes .5mg 0.5 mg. UT (Xanax) 0.5 0-06 Health MG tablet 00:00: 00 ALPRAZolam 2018-09 Yes .5mg 0.5 mg. UT (Xanax) 0.5 0-06 Health MG tablet 00:00: 00 ALPRAZolam 2018-09 Yes .5mg 0.5 mg. UT (Xanax) 0.5 0-06 Health MG tablet 00:00: 00 ALPRAZolam 2018-09 Yes .5mg 0.5 mg. UT (Xanax) 0.5 0-06 Health MG tablet 00:00: 00 ALPRAZolam 2018-09 Yes .5mg 0.5 mg. UT (Xanax) 0.5 0-06 Health MG tablet 00:00: 00 ALPRAZolam 2018-09 Yes .5mg 0.5 mg. UT (Xanax) 0.5 0-06 Health MG tablet 00:00: 00 ALPRAZolam 2018-09 Yes .5mg 0.5 mg. UT (Xanax) 0.5 0-06 Health MG tablet 00:00: 00 ALPRAZolam 2018-09 Yes .5mg 0.5 mg. UT (Xanax) 0.5 0-06 Health MG tablet 00:00: 00 ALPRAZolam 2018-09 Yes .5mg 0.5 mg. UT (Xanax) 0.5 0-06 Health MG tablet 00:00: 00 ALPRAZolam 2018-09 Yes .5mg 0.5 mg. UT (Xanax) 0.5 0-06 Health MG tablet 00:00: 00 ALPRAZolam 2018-09 Yes .5mg 0.5 mg. UT (Xanax) 0.5 0-06 Health MG tablet 00:00: 00 MEDROL Yes Take as Memoria (MISSY) 4 MG 3-31 directed l TABS 00:00: [place] ALPRAZOLAM Yes 1/2 - 1 Aquiles trudy 0.5 MG TABS 3-31 tablet l 00:00: once daily as needed for anxiety IBUPROFEN Yes 1 tablet Aquiles trudy 600 MG TABS 3-31 three l 00:00: times a [place] day as needed for pain MEDROL Yes Take as Memoria (MISSY) 4 MG 3-31 directed l TABS 00:00: ALPRAZOLAM Yes 1/2 - 1 Aquiles trudy 0.5 MG TABS 3-31 tablet l 00:00: once daily as needed for anxiety IBUPROFEN Yes 1 tablet Aquiles trudy 600 MG TABS 3-31 three l 00:00: times a [place] day as needed for pain METROGEL-VA Yes Insert one Memoria GINAL 0.75 9-24 applicator l % GEL 00:00: per vagina Robles n 00 at bedtime for 5 nights METROGEL-VA No Insert one Memoria GINAL 0.75 9-24 applicator l % GEL 00:00: per vagina Robles n 00 at bedtime for 5 nights METROGEL-VA Yes Insert one Memoria GINAL 0.75 9-24 applicator l % GEL 00:00: per vagina Robles n 00 at bedtime for 5 nights METROGEL-VA No Insert one Memoria GINAL 0.75 9-24 applicator l % GEL 00:00: per vagina Robles n 00 at bedtime for 5 nights ZOLPIDEM Yes 1 tablet Memor ia TARTRATE 10 9-22 at bedtime l MG TABS 00:00: as needed Mel nn 00 for insomnia ZOLPIDEM Yes 1 tablet Memor ia TARTRATE 10 9-22 at bedtime l MG TABS 00:00: as needed Mel nn 00 for insomnia ZOLPIDEM Yes 1 tablet Memor ia TARTRATE 10 9-22 at bedtime l MG TABS 00:00: as needed Mel nn 00 for insomnia ZOLPIDEM Yes 1 tablet Memor ia TARTRATE 10 9-22 at bedtime l MG TABS 00:00: as needed Mel nn 00 for insomnia VITAMIN D No Take 1 Memori a (ERGOCALCIF 9-07 capsule by Kwanji CLEMENCIA) 00:00: mouth Mel nn UNIT CAPS 00 every week for 12 weeks VITAMIN D No Take 1 Memori a (ERGOCALCIF 9-07 capsule by l CLEMENCIA) 00:00: mouth Mel nn UNIT CAPS 00 every week for 12 weeks DIFLUCAN No 1 tablet Memor ia TAB 150MG 8-22 po daily x l 00:00: 1 now, then repeat dose in 3 days DIFLUCAN No 1 tablet Memor ia TAB 150MG 8-22 po daily x l 00:00: 1 now, then repeat dose in 3 days DIAZEPAM 5 No 1/2 tab as M emoria MG TABS 5-20 needed for l 00:00: anxiety or muscle spasms LEXAPRO 10 No 1 tablet Mem oria MG TABS 5-20 daily for l 00:00: mood LEXAPRO 10 Yes 1 tablet Mem oria MG TABS 5-20 daily for l 00:00: mood DIAZEPAM 5 No 1/2 tab as M emoria MG TABS 5-20 needed for l 00:00: anxiety or [place] 00 muscle spasms LEXAPRO 10 Yes 1 tablet Mem oria MG TABS 5-20 daily for l 00:00: mood [place] 00 LEXAPRO 10 No 1 tablet Mem oria MG TABS 5-20 daily for l 00:00: mood AMRIX 15 MG No 1 tab po Me moria [id number] 3-28 in the l 00:00: evening [place] 00 around 4pm-6pm as needed for muscle pain AMRIX 15 MG No 1 tab po Me moria [id number] 3-28 in the l 00:00: evening [place] around 4pm-6pm as needed for muscle pain AMRIX 15 MG No 1 tab po Me moria [id number] 3-28 in the l 00:00: evening [place] 00 around 4pm-6pm as needed for muscle pain AMRIX 15 MG No 1 tab po Me moria [id number] 3-28 in the l 00:00: evening [place] 00 around 4pm-6pm as needed for muscle pain AMRIX 15 MG No 1 tab po Me moria [id number] 3-28 in the l 00:00: evening [place] 00 around 4pm-6pm as needed for muscle pain AMRIX 15 MG No 1 tab po Me moria [id number] 3-28 in the l 00:00: evening [place] 00 around 4pm-6pm as needed for muscle pain LOSARTAN 2012-09 Yes 1 tab po Memor ia POTASSIUM-H 2-27 qam for l CTZ 50-12.5 00:00: blood Mel nn MG TABS 00 pressure LOSARTAN 2012-09 Yes 1 tab po Memor ia POTASSIUM-H 2-27 qam for l CTZ 50-12.5 00:00: blood Mel nn MG TABS 00 pressure LOSARTAN 2012-09 Yes 1 tab po Memor ia POTASSIUM-H 2-27 qam for l CTZ 50-12.5 00:00: blood Mel nn MG TABS 00 pressure LOSARTAN 2012-09 Yes 1 tab po Memor ia POTASSIUM-H 2-27 qam for l CTZ 50-12.5 00:00: blood Mel nn MG TABS 00 pressure [facility] 2011-09 No 1 dose Memoria MISC 0-16 twice l 00:00: daily for [place] 00 14 days [facility] 2011-09 No 1 dose Memoria MISC 0-16 twice l 00:00: daily for [place] 14 days [facility] 2011-09 No 1 dose Memoria MISC 0-16 twice l 00:00: daily for [place] 00 14 days [facility] 2011-09 No 1 dose Memoria MISC 0-16 twice l 00:00: daily for [place] 00 14 days FLAGYL 500 No 1 tab po Mem oria MG TABS 7-17 bid x 7 l 00:00: days [place] 00 FLAGYL 500 No 1 tab po Mem oria MG TABS 7-17 bid x 7 l 00:00: Losartan Losartan Yes UT Potassium Potassium Physi ci 100 MG Oral 100 MG Oral a ns Tablet Tablet hydroCHLORO hydroCHLORO Yes U T thiazide 25 thiazide 25 P hysici MG Oral MG Oral ans Tablet Tablet Zolpidem Zolpidem Yes UT Tartrate 10 Tartrate 10 P hysici MG Oral MG Oral ans Tablet Tablet ALPRAZolam ALPRAZolam Yes UT 0.5 MG Oral 0.5 MG Oral P hysici Tablet Tablet ans Immunizations Ordered Immunization Filled Immunization Date Status Commen ts Source Name Name [facility] COVID19 MRNA 2021-01-22 Completed [facility] Com[facility] odist VACCINATION 00:00:00 [facility] dT (Diphtheria and 2012-03-20 Completed Memori al [place] Tetanus) booster 20:32:41 given dT (Diphtheria and 2012-03-20 Completed Mehran al [place] Tetanus) booster 20:32:41 dT (Diphtheria and 2012-03-20 Completed Memori al [place] Tetanus) booster 20:32:41 given dT (Diphtheria and 2012-03-20 Completed Memori al [place] Tetanus) booster 20:32:41 Vital Signs Vital Name Observation Time Observation Value Comments Source Respiratory rate 2023-01-29 18:16:00 20 /min [facility] Body height 2023-01-29 18:16:00 172.7 cm [facility] Body weight 2023-01-29 18:16:00 100.245 kg [facility] BMI 2023-01-29 18:16:00 33.60 kg/m2 [facility] Systolic blood 2023-01-10 19:19:00 132 mm[Hg] [facility] pressure Diastolic blood 2023-01-10 19:19:00 85 mm[facility]Hg[facility] pressure Heart rate 2023-01-10 19:19:00 87 /min [facility] Oxygen saturation in 2023-01-10 19:19:00 97 /min [facility] Arterial blood by Pulse oximetry Body temperature 2022-06-07 18:14:00 36.78 Kassie [facility] Weight 2020-12-27 09:05:00 219 [lb_av] [facility] Body mass index 2020-12-27 09:05:00 32.34 kg/m2 [facility] (BMI) [Ratio] Systolic blood 2019-11-17 10:39:00 136 mm[Hg] [facility] pressure Diastolic blood 2019-11-17 10:39:00 89 mm[Hg] [facility] pressure Body height 2019-11-17 10:39:00 69 [in_us] [facility] Weight 2019-11-17 10:39:00 210 [lb_av] [facility] Body mass index 2019-11-17 10:39:00 31.01 kg/m2 [facility] (BMI) [Ratio] Heart Rate 2019-11-17 10:39:00 72 /min [facility] Height 2014-12-13 13:57:11 [facility] [place] Weight 2014-12-13 13:57:11 [facility] [place] Temperature Oral (F) 2014-12-13 13:57:11 98.2 F [facility] [place] Systolic (mm Hg) 2014-12-13 13:57:11 Aquiles rial [place] Diastolic (mm Hg) 2014-12-13 13:57:11 Mem orial [place] Heart Rate 2014-12-13 13:57:11 [facility] [place] Height 2014-06-06 14:06:02 [facility] [place] Weight 2014-06-06 14:06:02 [facility] [place] Temperature Oral (F) 2014-06-06 14:06:02 96.9 F [facility] [place] Heart Rate 2014-06-06 14:06:02 [facility] [place] Systolic (mm Hg) 2014-06-06 14:06:02 Aquiles rial [place] Diastolic (mm Hg) 2014-06-06 14:06:02 Mem orial [place] Weight 2014-05-06 20:14:01 [facility] [place] Temperature Oral (F) 2014-05-06 20:14:01 96.8 F [facility] [place] Heart Rate 2014-05-06 20:14:01 [facility] [place] Systolic (mm Hg) 2014-05-06 20:14:01 Aquiles rial [place] Diastolic (mm Hg) 2014-05-06 20:14:01 Mem orial [place] Weight 2014-02-01 15:38:42 [facility] [place] Temperature Oral (F) 2014-02-01 15:38:42 97.3 F [facility] [place] Heart Rate 2014-02-01 15:38:42 [facility] [place] Systolic (mm Hg) 2014-02-01 15:38:42 Aquiles rial [place] Diastolic (mm Hg) 2014-02-01 15:38:42 Mem orial [place] Weight 2013-12-10 16:33:00 [facility] [place] Temperature Oral (F) 2013-12-10 16:33:00 97.8 F [facility] [place] Heart Rate 2013-12-10 16:33:00 [facility] [place] Systolic (mm Hg) 2013-12-10 16:33:00 Aquiles rial [place] Diastolic (mm Hg) 2013-12-10 16:33:00 Mem orial [place] Weight 2013-11-02 20:44:02 [facility] [place] Temperature Oral (F) 2013-11-02 20:44:02 97.3 F [facility] [place] Systolic (mm Hg) 2013-11-02 20:44:02 Aquiles rial [place] Diastolic (mm Hg) 2013-11-02 20:44:02 Mem orial [place] Heart Rate 2013-11-02 20:44:02 [facility] [place] Weight 2013-09-10 20:59:00 [facility] [place] Temperature Oral (F) 2013-09-10 20:59:00 97.9 F [facility] [place] Heart Rate 2013-09-10 20:59:00 [facility] [place] Systolic (mm Hg) 2013-09-10 20:59:00 Aquiles rial [place] Diastolic (mm Hg) 2013-09-10 20:59:00 Mem orial [place] Weight 2012-06-29 20:09:31 [facility] [place] Respitory Rate 2012-06-29 20:09:31 Memori al [place] Temperature Oral (F) 2012-06-29 20:09:31 98.1 F [facility] [place] Heart Rate 2012-06-29 20:09:31 [facility] [place] Systolic (mm Hg) 2012-06-29 20:09:31 Aquiles rial [place] Diastolic (mm Hg) 2012-06-29 20:09:31 Mem orial [place] Respitory Rate 2012-03-20 20:32:41 Memori al [place] Heart Rate 2012-03-20 20:32:41 [facility] [place] Systolic (mm Hg) 2012-03-20 20:32:41 Aquiles rial [place] Diastolic (mm Hg) 2012-03-20 20:32:41 Mem orial [place] Height 2012-03-20 20:32:41 [facility] [place] Weight 2012-03-20 20:32:41 Rosette Lester Temperature Oral (F) 2012-03-20 20:32:41 98.6 F [facility] Procedure Date / Time Performing Clinician Source Performed US DUPLEX VENOUS LOWER 2023-01-23 19:47:17 [facility] EXTREMITY BILATERAL THYROID STIMULATING 2023-01-10 20:29:00 Daphne Moncada [facility] HORMONE T4, FREE 2023-01-10 20:29:00 [facility] 2023-01-10 20:29:00 Antwan [facility] HEMOGLOBIN A1C 2023-01-10 20:29:00 [facility] METABOLIC 2023-01-10 20:29:00 [facility] LIPID PANEL 2023-01-10 20:29:00 [facility] IONIZED CALCIUM 2023-01-10 20:29:00 [facility] PHOSPHORUS LEVEL 2023-01-10 20:29:00 [facility]ONE 2023-01-10 20:29:00 Daphne Moncada [facility] MRI LUMBAR SPINE WO 2022-06-17 20:59:37 Daphne Moncada [facility] CONTRAST US THYROID 2022-06-17 19:58:25 [facility] BRE[facility]EN 2022-06-17 19:46:59 Daphne Moncada [facility] TOMOSYNTHESIS BILATERAL CBC WITH PLATELET AND 2022-06-07 19:12:00 Daphne Moncada [facility] DIFFERENTIAL COMPREHENSIVE METABOLIC 2022-06-07 19:12:00 [facility] HEMOGLOBIN A1C 2022-06-07 19:12:00 [facility] LIPID PANEL 2022-06-07 19:12:00 [facility] URINALYSIS SCREEN AND 2022-06-07 19:12:00 [facility] MICROSCOPY, WITH REFLEX TO CULTURE THYROID STIMULATING 2022-06-07 19:12:00 [facility] HORMONE IONIZED CALCIUM 2022-06-07 19:12:00 [facility] THYROGLOBULIN ANTIBODY 2022-06-07 19:12:00 [facility] T3, FREE 2022-06-07 19:12:00 [facility] T4, FREE 2022-06-07 19:12:00 [facility] PARATHYROID HORMONE 2022-06-07 19:12:00 [facility] PHOSPHORUS LEVEL 2022-06-07 19:12:00 [facility] MICROSCOPIC EXAMINATION 2022-06-07 19:12:00 [facility] CT BONE MARROW BX W ASP 2022-02-27 16:00:00 Leeann [facility] SAME SITE FLOW CYTOMETRY EVALUATION 2022-02-27 15:40:00 [facility] BCM CHROMOSOME ANALYSIS 2022-02-27 15:40:00 [facility] PANEL BCM MM FISH PANEL 2022-02-27 15:40:00 Tomas [facility] MISCELLANEOUS REFERRAL 2022-02-27 15:40:00 [facility] TEST SURGICAL PATHOLOGY 2022-02-27 15:40:00 [facility] REQUEST CBC WITH PLATELET AND 2022-02-27 14:27:00 [facility] DIFFERENTIAL PROTHROMBIN TIME WITH INR 2022-02-27 14:27:00 [facility] RETICULOCYTE COUNT 2022-02-27 14:27:00 [facility] ARTHROCENTESIS ASPIR&/INJ 2021-07-24 19:15:55 [facility] JT/BURSA W/O US BILATERAL ARTHROCENTESIS ASPIR&/INJ 2021-07-17 18:00:50 Livia [facility]ccartney [facility] MA[facility] JT/BURSA W/O US BILATERAL ARTHROCENTESIS ASPIR&/INJ 2021-07-10 18:23:16 [facility] MAJOR JT/BURSA W/O US BILATERAL [U] XR KNEE 3 VWS 2020-12-27 00:00:00 [facility] BILATERAL MR Knee wo contrast [id number] 2020-12-27 00:00:00 [facility] echocardiogram, complete 2013-09-29 06:00:00 [facility] makenna Lester smoking/tobacco 2012-03-20 20:32:41 [facility] Her cote cessation, patient education and counseling mammogram 2011-06-16 03:29:37 [facility] vaginal Pap smear results 2011-02-14 03:29:37 Ks radha Lester Plan of Care Planned Activity Planned Date Details Comments Source Future Scheduled 2023-02-23 Screening for [facility] Test 13:32:13 malignant neoplasm [facility] of colon (procedure) [code = 668986547] Future Scheduled 2023-02-23 Screening for [facility] Test 13:32:13 malignant neoplasm [facility] of colon (procedure) [code = 553214710] Future Scheduled 2023-02-23 Screening for [facility] Test 13:32:13 malignant neoplasm [facility] colon (procedure) [code = 386699179] Future Scheduled 2023-02-23 Pneumococcal [facility] Test 13:32:13 Vaccine: [facility] (0 to 5 Years) and At-Risk Patients (6 to 64 Years) (1 - PCV) [code = Pneumococcal Vaccine: Pediatrics (0 to 5 Years) and At-Risk Patients (6 to 64 Years) (1 - PCV)] Future Scheduled 2023-02-23 Screening for [facility] Test 13:32:13 malignant neoplasm [facility] of cervix (procedure) [code = 596095772] Future Scheduled 2023-02-23 INFLUENZA VACCINE Method ist Test 13:32:13 [code = INFLUENZA Hospital VACCINE] Future Scheduled 2023-02-23 BREAST CANCER [facility] Test 13:32:13 SCREENING [code = Hospital BREAST CANCER SCREENING] Future Scheduled 2023-02-23 COVID-19 VACCINE (3 Postponed from Me thodist Test 13:32:13 - Pfizer risk 02/19/2021 Hospital series) [code = (Patient Refused) COVID-19 VACCINE (3 - Pfizer risk series)] Future Scheduled 2023-02-23 SHINGLES VACCINES (1 Postponed from M ethodist Test 13:32:13 of 2) [code = 02/23/1984 Hospital SHINGLES VACCINES (1 (Patient Refused) of 2)] Future Scheduled 2023-02-23 Screening for [facility] Test 13:32:13 malignant neoplasm [facility] colon (procedure) [code = 061170172] Future Scheduled 2023-02-23 Screening for [facility] Test 13:32:13 malignant neoplasm [facility] colon (procedure) [code = 729145804] Encounters Start End Encounter Admission Attending Care Care Encounter Source Date/Time Date/Time Type Type Clinicians Facility Department ID 2021-06-22 Outpatient [facility] [id number] [place] 09:04:05 E, [facility] 2021-06-22 Outpatient [facility] [id number] [place] 09:01:47 E, [facility] 2023-02-17 2023-02-17 Outpatient YAO BRADSHAW MHBL MHBL [id number] BL 09:22:00 23:59:00 2023-01-29 2023-01-29 Office Spanish, 1.2.840.1 [id number] Methodi 13:30:00 13:56:24 Visit [facility] [id number] 3.430.2.7 Hospit a .3.177155 l .8 2023-01-29 2023-01-29 Outpatient [facility] [id number] 00:00:00 00:00:00 [facility] [address] 2023-01-29 2023-01-29 Travel 1.2.840.1 [id number] Methodi 00:00:00 00:00:[id number] 3.430.2.7 [id number] Ho spita .[id number] 084.8 l .8 2023-01-23 2023-01-23 Outpatient MONCADA, [facility] [id number] 00:00:00 00:00:00 [facility] [address] 2023-01-20 2023-01-20 Telephone Moncada, 1.2.840.1 [id number] Methodi 00:00:00 00:00:00 Zen[facility] [id number] 3.430.2.7 Hospit a .3.855367 l .8 2023-01-10 2023-01-10 Office Moncada, 1.2.840.1 [id number] [id number] 4559 Methodi 15:00:00 15:29:22 Visit Zenithe 77979.1.1 [address] 3.430.2.7 Hospit a .3.574870 l .8 2023-01-10 2023-01-10 Outpatient [facility] [id number] 00:00:00 00:00:[address] 2023-01-10 2023-01-10 Travel 1.2.840.1 1.2.295.897 6088 488912 Methodi 00:00:00 00:00:[address] 3.430.2.7 0.2.7.3.698 Ho spita .3.255048 084.8 l .8 2022-11-22 2022-11-22 Outpatient ASHWINI, MHBL MHBL 750 4 MHBL 09:10:00 10:48:00 [facility] 2022-11-07 2022-11-07 Emergency E CHUJungWUMA, MHBL MHBL [id number] MHBL 11:44:00 15:46:00 IGOR 2022-10-15 2022-10-15 Telephone Moncada, 1.2.840.1 [id number] 2099 [id number] Methodi 00:00:00 00:00:00 Zenithe 85749.1.1 [address] 3.430.2.7 Hospit a .3.319332 l .8 2022-10-15 2022-10-15 Refdhara Mo, 1.2.840.1 [id number] 2100 250789 Methodi 00:00:00 00:00:[address] 3.430.2.7 Hospit a .3.144147 l .8 2022-06-17 2022-06-17 Outpatient MONCADA, [facility] [id number] [address] 00:00:00 00:00:00 ZENITHE [address] i 2022-06-17 2022-06-17 Outpatient [facility] [facility] [id number] [address] [place] 00:00:00 00:00:00 ZENITHE 676 Method i 2022-06-17 2022-06-17 Outpatient [place], [facility] [id number] [place] 00:00:00 00:00:00 ZENITHE [address] 2022-06-17 2022-06-17 Travel 1.2.840.1 1.2.068.371 [id number] Methodi 00:00:00 00:00:[address] 3.430.2.7 0.2.7.3.698 Ho spita .3.592325 084.8 l .8 2022-06-07 2022-06-07 Office [place], 1.2.840.1 [id number] Methodi 13:00:00 14:09:38 Visit Daphne 57306.1.1 407 [place] 3.430.2.7 Hospit a .3.131777 l .8 2022-06-07 2022-06-07 Outpatient [place], [facility] [id number] [place] 00:00:00 00:00:00 ZENITHE [address] 2022-06-07 2022-06-07 Travel 1.2.840.1 1.2.069.462 [id number] [id number] Methodi 00:00:00 00:00:[address] 3.430.2.7 0.2.7.3.698 Ho spita .3.930872 084.8 l .8 2022-05-25 2022-05-25 Refill Antwan, 1.2.840.1 [id number] Methodi 00:00:00 00:00:00 Zenithe 96681.1.1 101 [place]leigh 3.430.2.7 Hospit a .3.933285 l .8 2022-04-05 2022-04-05 Telemedici Antwan, 1.2.840.1 [id number] Methodi 08:45:00 09:08:53 ne Zenithe 00825.1.1 249 [address]leigh 3.430.2.7 Hospit a .3.745125 l .8 2022-04-05 2022-04-05 Outpatient ANTWAN, [facility] [id number] [place] 00:00:00 00:00:00 ZENITHE [address] 2022-03-12 2022-03-12 Travel 1.2.840.1 1.2.503.778 4111 [id number] Methodi 00:00:00 00:00:[address] 3.430.2.7 0.2.7.3.698 Ho spita .3.243758 084.8 l .8 2022-02-27 2022-02-27 [facility] 1.2.840.1 [id number] Methodi 09:10:12 23:59:00 Encounter Qamrus 11532.1.[address] 3.430.2.7 Hospit a .3.764809 l .8 2022-02-27 2022-02-27 [facility] [id number] [place] 00:00:00 00:00:[address] 2022-02-27 2022-02-27 Travel 1.2.840.1 1.2.934.158 4087 [id number] Methodi 00:00:00 00:00:[address] 3.430.2.7 0.2.7.3.698 Ho spita .3.359960 084.8 l .8 2022-02-14 2022-02-14 Outpatient SALAM, AMIR [facility] [id number] [place] 00:00:00 00:00:[address] 2022-01-29 2022-01-29 Outpatient [place], [facility] [id number] [place] 00:00:00 00:00:00 ZENITHE [address] 2021-12-05 2021-12-05 Outpatient [facility] [id number] [address] [place] 00:00:00 00:00:[address] 2021-07-24 2021-07-24 Procedure Wisdom-Franz UTP [facility] 1.2.840.114 [id number] [place] 12:50:34 13:45:57 Visit e, Peng [place] 350.1.13.58 Health MEDICAL 9.2.7.2.686 PLAZA 2 [id number] 7 2021-07-17 2021-07-17 Procedure Wisdom-Franz UTP [facility] 1.2.840.114 [id number] [place] 12:54:04 13:25:03 Visit e, Peng AISHWARYA 350.1.13.58 Health MEDICAL 9.2.7.2.686 PLAZA 9 [id number] 7 2021-07-16 2021-07-16 Outpatient SALJADA, MIRR MHBL MHBL 750 3 MHBL 09:45:00 23:59:00 2021-07-10 2021-07-10 Office Wisdom-Franz UTP [facility] 1.2.840.114 12 [id number] [place] 13:04:19 14:02:15 Visit e, Peng [place] 350.1.13.58 Health MEDICAL 9.2.7.2.686 PLAZA 6 [id number] 2021-06-01 2021-06-01 Outpatient [place], [facility] [id number] [place] 00:00:00 00:00:00 ZENITHE [address] 2021-06-01 2021-06-01 Orders Livia Mccartney UTP [facility] 1.2.840.114 [id number] [place] 00:00:00 00:00:00 Only Livia Mccartney 350.1.13.58 Health MEDICAL 9.2.7.2.686 PLAZA 2 [id number] 7 2021-05-23 2021-05-23 Outpatient [place], [facility] [id number] [address] [place] 00:00:00 00:00:00 ZENITHE [address] 2021-05-23 2021-05-23 Outpatient [place], [facility] [id number] [address] [place] 00:00:00 00:00:00 ZENITHE [address] 2021-05-22 2021-05-22 Telephone Livia Mccartney [facility] 1.2.840.11 4 [id number] [place] 00:00:00 00:00:00 BibSalazarLivialaura NEFF 350.1.13.58 Health MEDICAL 9.2.7.2.686 PLAZA 6 [id number] 7 2021-04-06 2021-04-06 Refill ERIN Beavers [facility] 1.2.840.114 [id number] [place] 00:00:00 00:00:00 Handy NEFF 350.1.13.58 H ealth MEDICAL 9.2.7.2.686 PLAZA 5 [id number] 7 2021-04-06 2021-04-06 Refill ERIN Beavers [facility] 1.2.840.114 [id number] 00:00:00 00:00:00 Handy AISHWARYA 350.1.13.58 MEDICAL 9.2.7.2.686 PLAZA 8 [id number] 7 2021-03-15 2021-03-15 Outpatient YAO BRADSHAW MHSE MHSE 750 2 MH 14:17:00 23:59:00 [facility] 2021-03-07 2021-03-07 EXT MHH OP EXT MSRDP 1.2.840.114 1 [id number] [place] 00:00:00 00:00:00 LOCATION 350.1.13.58 H ealth 9.2.7.2.686 [id number] 2021-03-07 2021-03-07 EXT MHH OP EXT MSRDP 1.2.840.114 1 [id number] [place] 00:00:00 00:00:00 LOCATION 350.1.13.58 H ealth 9.2.7.2.686 [id number] 0 2021-02-07 2021-02-[address] [facility] 1.2.840.114 11 [id number] [place] 11:14:16 11:29:16 Visit e, Peng NEFF 350.1.13.58 Health MEDICAL 9.2.7.2.686 PLAZA 6 [id number] 2021-02-07 2021-02-07 [address] [facility] 1.2.840.114 11 [id number] 11:14:16 11:29:16 Visit e, Peng NEFF 350.1.13.58 MEDICAL 9.2.7.2.686 PLAZA 1 [id number] 7 2021-02-06 2021-02-06 Outpatient [facility] [id number] [address] [place] 00:00:00 00:00:00 242 Method i 2021-01-22 2021-01-22 Outpatient [facility] [id number] Univers 09:40:00 09:40:00 [facility] 2021-01-20 2021-01-20 Outpatient [facility] [id number] Univers 09:40:00 09:40:00 [facility] 2020-12-30 2020-12-30 Outpatient R [facility] [id number] Univers 09:35:00 09:35:00 [facility] 2020-12-27 2020-12-[facility] Orthopedics [id number] [place] 09:00:00 09:00:00 [facility] TORRES-BAR M.D. II ans PENG KAMARA M.D. 2020-09-28 2020-09-28 Outpatient CHUY [facility] [id number] [address] [place] 00:00:00 00:00:00 PREMAL [address] 2020-09-06 2020-09-06 Outpatient MONCADA [facility] [id number] [place] 00:00:00 00:00:00 ZENITHJorge A [address] 2020-06-14 2020-06-14 Outpatient [place], [facility] [id number] [address] [place] 00:00:00 00:00:00 ZENITHE 980 Method i 2020-05-29 2020-05-29 Outpatient ANTWAN, [facility] [id number] [place] 00:00:00 00:00:00 ZENITHE 847 Method i 2020-05-08 2020-05-08 Outpatient YAO BRADSHAW MHBL MHBL 750 1 MHBL 07:36:00 07:36:00 2020-04-14 2020-04-14 Outpatient ANTWAN, [facility] [id number] [place] 00:00:00 00:00:00 ZENITHE 699 Method i 2020-04-04 2020-04-04 Outpatient ANTWAN [facility] [id number] [place] 00:00:00 00:00:00 ZENITHE 775 Method i 2019-11-17 2019-11-17 [facility] ER[facility]STO KHAN Orthopedics [id number] [place] 10:00:00 10:00:00 [facility] TORRES-BAR M.D. II ans PENG KAMARA M.D. 2015-12-29 2015-12-29 Outpatient MHIE MHIE [id number] [place] 10:30:00 10:30:00 03 aden Lester 2015-12-29 2015-12-29 Outpatient MHIE [facility]IE [id number] [place] 10:30:00 10:30:00 03 aden Lester 2015-09-18 2015-09-18 Outpatient MHIE [facility]IE [id number] [place] 14:00:00 14:00:00 02 aden Lester 2015-09-18 2015-09-18 Outpatient MHIE [facility]IE [id number] [place] 14:00:00 14:00:00 02 aden Lester 2015-07-05 2015-07-05 Outpatient MHIE MHIE [id number] [place] 08:00:00 08:00:00 01 aden Lester 2015-07-05 2015-07-05 Outpatient MHIE MHIE [id number] [place] 08:00:00 08:00:00 01 aden Lester 2015-05-25 2015-05-25 Outpatient MHIE MHIE [id number] [place] 15:00:00 15:00:00 00 aden Lester 2015-05-25 2015-05-25 Outpatient [facility] [id number] Memoria 15:00:00 15:00:00 00 aden Lester 2014-12-13 2014-12-13 [facility] [id number] 430 [facility]oria 00:00:00 00:00:[id number] [facility] 2014-06-06 2014-06-06 [facility] [id number] 962 Memoria 00:00:00 00:00:[id number] [facility] 2014-05-20 2014-05-20 Lab Report [facility] 1725 [id number] Memoria 00:00:00 00:00:[id number] [facility] 2014-05-06 2014-05-06 [facility] [id number] [facility] 00:00:00 00:00:[address] [facility] 2014-02-01 2014-02-01 [facility] [id number] Memoria 00:00:00 00:00:[id number] [facility] 2013-12-13 2013-12-13 Lab Report [facility] 1711 [id number] Memoria 00:00:00 00:00:00 alon Lester [id number] [facility] 2013-12-10 2013-12-10 Office [facility]Flavo [facility] [id number] 580 [place] 00:00:00 00:00:[address] Lester [id number] [facility] Results Test Description Test Time Test Comments Results Result Comments Source Comprehensive metabolic panel 2023-01-12 10:41:00 Test Item Value Reference Range Interpretation Comme nts Glucose (test code = 151 mg/dL 70-99 H 2345-7) BUN (test code = 3094-0) 34 mg/dL 6-24 H Creatinine (test code = 1.12 mg/dL 0.57-1.00 H 2160-0) eGFR (test code = 84383-6) 57 mL/min/1.73 >=59 L BUN/creatinine ratio (test 30 9-23 H code = 3097-3) Sodium (test code = 139 mmol/L 906-296 9933-2) Potassium (test code = 4.3 mmol/L 3.5-5.2 2823-3) Chloride (test code = 102 mmol/L 96-106 2075-0) CO2 (test code = 2027-9) 23 mmol/L 20-29 Calcium (test code = 10.2 mg/dL 8.7-10.2 12280-9) Protein (test code = 6.4 g/dL 6.0-8.5 2885-2) Albumin, S (test code = 4.2 g/dL 3.8-4.9 1751-7) Globulin, total (test code 2.2 g/dL 1.5-4.5 = 40529-6) Albumin/globulin ratio 1.9 1.2-2.2 (test code = 1759-0) Total bilirubin (test code 0.3 mg/dL 0.0-1.2 = 1974-2) Alkaline phosphatase (test 79 See_Comment [Automated message] code = 6768-6) The system [employer] generated this result transmitted ref erence range: 44 - 121 IU/L. The reference r evie was not used to int erpret this result as normal/abnormal . AST (test code = 1920-8) 17 See_Comment [A utomated message] The system [employer] generated this result transmitted ref erence range: 0 - 40 I U/L. The reference range was not used to interpr et this result as normal/abnormal . ALT (test code = 1742-6) 50 See_Comment H [A utomated message] The system [employer] generated this result transmitted ref erence range: 0 - 32 I U/L. The reference range was not used to interpr et this result as normal/abnormal . EDDIE (test code = EDDIE) Performed at: [facility] Lab[address] [id number] Director: Jesus Polanco MD, Phone: [phone] Lab Interpretation (test Abnormal code = 00813-6) [facility] [id number] 10:41:00 Test Item Value Reference Range Interpretation Comments Cholesterol (test code = 251 mg/dL 100-199 H 2093-3) Triglycerides (test code 107 mg/dL 0-149 = 2571-8) HDL cholesterol (test 117 mg/dL >=39 code = 2085-9) VLDL cholesterol katelin 18 mg/dL 5-40 (test code = 44718-6) LDL Chol Calc (NIH) (test 116 mg/dL 0-99 H code = 77412-8) Non-HDL cholesterol (test 134 mg/dL 0-129 H code = 97514-9) EDDIE (test code = EDDIE) Performed at: [address] [place] [address] [id number] Director: Jesus Polanco MD, Phone: [phone] Lab Interpretation (test Abnormal code = 04195-9) [facility] HospitalIonized [id number] 10:41:00 Test Item Value Reference Range Interpretation Comments Ionized calcium (test 5.3 mg/dL 4.5-5.6 code = 80127-8) EDDIE (test code = EDDIE) Performed at: [address] [place] [address] [id number] Director: Jesus Polanco MD, Phone: [phone] [facility] HospitalHemoglobin [id number] 10:41:00 Test Item Value Reference Range Interpretation Comments Hemoglobin A1C (test 5.8 % 4.8-5.6 H Predia betes: code = 4548-4) 5.7 - 6.4 Diabetes: >6.4 Glycemic control for adults with diabetes: <7.0 EDDIE (test code = EDDIE) Performed at: [address] [place] [address] [id number] Director: Jesus Polanco MD, Phone: [phone] Lab Interpretation Abnormal (test code = 73752-4) [facility] HospitalParathyroid [id number] 10:41:00 Test Item Value Reference Range Interpretation Comments PTH (test code = 55 pg/mL 2731-8) EDDIE (test code = Performed at: ) [address] [id number] Director: Jesus Polanco MD, Phone: [phone] [facility] HospitalPhosphorus [id number] 10:41:00 Test Item Value Reference Range Interpretation Comments Phosphorus (test code = 2.5 mg/dL 3.0-4.3 L 2777-1) EDDIE (test code = EDDIE) Performed at: [address] [id number] Director: Jesus Polanco MD, Phone: [phone] Lab Interpretation (test Abnormal code = 53882-8) [facility] HospitalT4, [id number] 10:41:00 Test Item Value Reference Range Interpretation Comments T4, free (test code 0.97 ng/dL 0.82-1.77 = 3024-7) EDDIE (test code = Performed at: EDDIE) [address] [id number] Director: Jesus Polanco MD, Phone: [phone] [facility] HospitalThyroid stimulating [id number] 10:41:00 Test Item Value Reference Range Interpretation Comments TSH (test code = 0.118 See_Comment L [Automated 49914-1) message] The system which generated this result transmitted reference range : 0.450 - 4.500 uIU/mL. The reference range was not used to interpret this result as normal/abnormal . EDDIE (test code = EDDIE) Performed at: [address] [id number] Director: Jesus Polanco MD, Phone: [phone] Lab Interpretation Abnormal (test code = 89499-4) [facility] [id number] 10:41:00 Test Item Value Reference Range Interpretation Comments T3 (test code = 80 ng/dL 71-180 3053-6) EDDIE (test code = Performed at: ) [address] [id number] Director: Jesus Polanco MD, Phone: [phone] [facility] HospitalThyroglobulin [id number] 12:36:00 Test Item Value Reference Range Interpretation Comments Thyroglobulin Ab <1.0 See_Comment Thyroglobul in (test code = 8098-6) Antibod y measured by Danika Coul ter Methodology [Automated mess age] The system [employer] generated this result transmit pepito reference range : 0.0 - 0.9 IU/mL . The reference r evie was not used to interpret this result as normal/abnormal . EDDIE (test code = Performed at: EDDIE) - Lab[address] [id number] Director: Jesus Polanco MD, Phone: [phone] [facility] HospitalUrinalysis screen and microscopy, with reflex to culture 2022-06-09 12:36:00 Test Item Value Reference Range Interpretation Comments Specific gravity, 1.015 1.005-1.030 urine (test code = 5811-5) pH, urine (test 6.5 5.0-7.5 code = 5803-2) Color, UA (test Yellow Yellow code = 5778-6) Appearance (test Clear Clear code = 5767-9) WBC esterase, urine Negative Negative (test code = 5799-2) Protein, UA (test Negative Negative/Trace code = 27751-0) Glucose, urine Negative Negative (test code = 59218-0) Ketones, UA (test Negative Negative code = 2514-8) Occult blood, urine Negative Negative (test code = 5794-3) Bilirubin, UA (test Negative Negative code = 5770-3) Urobilinogen, UA 0.2 mg/dL 0.2-1.0 (test code = 16841-0) Nitrite, UA (test Negative Negative code = 5802-4) Microscopic See below: Microscopic was examination (test indicated and was code = 72071-8) performed. Urinalysis reflex Comment This speci men will (test code = 2386) not refle x to a Urine Culture. EDDIE (test code = Performed at: EDDIE) - LabCo[address] [id number] Director: Jesus Polanco MD, Phone: [phone] [facility] HospitalMicroscopic [id number] 12:36:00 Test Item Value Reference Range Interpretation Comments WBC, UA (test code None seen See_Comment [Automat ed = 5821-4) message] The system which generated this result transmit pepito reference range : 0 - 5 /hpf. The reference range was not used to interpret this result as normal/abnormal . RBC, UA (test code None seen See_Comment [Automat ed = 07003-4) message] The system which generated this result transmit pepito reference range : 0 - 2 /hpf. The reference range was not used to interpret this result as normal/abnormal . Epithelial cells 0-10 See_Comment [Automated (non renal) (test message] T he code = 5787-7) system which generated this result transmit pepito reference range : 0 - 10 /hpf. The reference range was not used to interpret this result as normal/abnormal . Casts (test code = None seen None seen /lpf 89611-5) Bacteria, UA (test None seen None seen/Few code = 5769-5) EDDIE (test code = Performed at: EDDIE) Lab[address] [id number] Director: Jesus Polanco MD, Phone: [phone] [facility] HospitalT3, [id number] 12:36:00 Test Item Value Reference Range Interpretation Comments T3, free (test code 2.1 pg/mL 2.0-4.4 = 3051-0) EDDIE (test code = Performed at: [facility]) [facility] [id number] Director: Jesus Polanco MD, Phone: [phone] [facility] with platelet and [id number] 12:36:00 Test Item Value Reference Range Interpretation Comments WBC (test code = 6.7 See_Comment [Automated 4390-2) message] The system which generated this result transmitted reference range : 3.4 - 10.8 x10E3/uL. The reference range was not used to interpret this result as normal/abnormal . RBC (test code = 4.18 See_Comment [Automated 059-8) message] The system which generated this result transmitted reference range : 3.77 - 5.28 x10E6/uL. The reference range was not used to interpret this result as normal/abnormal . HGB (test code = 12.6 g/dL 11.1-15.9 718-7) HCT (test code = 37.1 % 34.0-46.6 4544-3) MCV (test code = 89 fL 79-97 787-2) MCH (test code = 30.1 pg 26.6-33.0 785-6) MCHC (test code = 34.0 g/dL 31.5-35.7 786-4) RDW (test code = 14.5 % 11.7-15.4 788-0) Platelet count (test 368 See_Comment [Autom ated code = 777-3) message] The system which generated this result transmitted reference range : 150 - 450 x10E3/uL. The reference range was not used to interpret this result as normal/abnormal . Neutrophils (test 91 % Not Estab. code = 770-8) Lymphocytes (test 8 % Not Estab. code = 736-9) Monocytes (test code 1 % Not Estab. = 5905-5) Eosinophils (test 0 % Not Estab. code = 713-8) Basophils (test code 0 % Not Estab. = 706-2) Neutrophils, absolute 6.0 See_Comment [Auto mated (test code = 751-8) message] The system which generated this result transmitted reference range : 1.4 - 7.0 x10E3/uL. The reference range was not used to interpret this result as normal/abnormal . Lymphocytes, absolute 0.6 See_Comment L [Auto mated (test code = 731-0) message] The system which generated this result transmitted reference range : 0.7 - 3.1 x10E3/uL. The reference range was not used to interpret this result as normal/abnormal . Monocytes, absolute 0.0 See_Comment L [Automa pepito (test code = 742-7) message] The system which generated this result transmitted reference range : 0.1 - 0.9 x10E3/uL. The reference range was not used to interpret this result as normal/abnormal . Eosinophils, absolute 0.0 See_Comment [Auto mated (test code = 711-2) message] The system which generated this result transmitted reference range : 0.0 - 0.4 x10E3/uL. The reference range was not used to interpret this result as normal/abnormal . Basophils, absolute 0.0 See_Comment [Automa pepito (test code = 704-7) message] The system which generated this result transmitted reference range : 0.0 - 0.2 x10E3/uL. The reference range was not used to interpret this result as normal/abnormal . Immature granulocytes 0 % Not Estab. (test code = 34643-1) Immature 0.0 See_Comment [Automated granulocytes, message] The absolute (test code = system which 91144-1) generated this result transmitted reference range : 0.0 - 0.1 x10E3/uL. The reference range was not used to interpret this result as normal/abnormal . EDDIE (test code = EDDIE) Performed at: [facility] [place], [place] [id number] Director: Jesus Polanco MD, Phone: [phone] Lab Interpretation Abnormal (test code = 74318-9) [facility] [id number] 22:42:00 Test Item Value Reference Range Interpretation Comments Misc test IF IGH REARRANGEMENT name (test POSITIVE,[id number] code = 2566) Misc test see note Chromosome result (test AnalysisIndicat ion: code = 1730) Plasma cell arnie plasm, Multiple Myelom a included, evalu ate for remissionSa mple: Bone MarrowMeth od: FISH---RESULTS: ABNORM AL:t(11;14)(q13 ;q32) (CCND1/IGH): Ge ne fusion detected INCIDENTAL FINDINGS:t(4;14 )(p16. 3;q32.3) (IGH/F GFR3): Gene fusion NOT detected; Data consistent with another IGH rearrangement.t (14;16 )(q32;q23) (IGH /MAF): Gene fusion NOT detected; Data consistent with another IGH rearrangement. INTERPRETATION :Abnormal FISH results for the CCND1/IGH probe set. 6% (6/100) of c ells analyzed with t he CCND1/IGH probe set showed two fusi on signals, one re d signal (CCND1) and one green signa l (IGH). These da ta indicate that C CND1 is the transloc ation partner for IGH , which is usuall y the result of a reciprocal translocation b etween the long arms o f chromosomes 11 and 14 [t(11;14)(q13;3 2)]. 5% (5/100) of c ells analyzed with t he FGFR3/IGH probe set showed two red signals (FGFR3) and three green sig nals (IGH), while 8% (8/200) of cell s analyzed with I GH/MAF showed two red signals (MAF) a nd three green sig nals (IGH). These hybridization patterns are consistent with an IGH gene rearrangement i n which the translocation p artner is not FGFR3 or MAF.Chromosome analysis is pen ding and will be rep orted separately. METHODOLOGY: Fluorescence in situ hybridization ( FISH) studies were performed on th is bone marrow elsy ple, which was proce ssed for plasma cell enrichment (PCE ). The panel of DNA pr obes used was design ed to detect IGH abnormalities commonly seen i n plasma cell neoplasms. PCE increases the sensitivity and specificity of FISH detection of th anil cytogenomic abnormalities; thus selective juan luis sis of plasma cells al lows for a reduction in the minimum num pipo of cells scored fo r a full analysis ( from 200 to at least 25 interphase cell s). ISCN: nuc maura(KRFW2a9,IGH x3)[]nuc maura(CCND1,IGH)x 3(CCND 1 con IGHx2)[]nu c maura(IGHx3,MAFx2 )[04/24 0] EDDIE (test BONE MARROW code = EDDIE) ASPIRATED INTO DARK GREEN TOPCYTOGENETICS-8300 MULTIPLE MYELOMA-8015 ZMISC- IF IGH REARRANGEMENT POSITIVE, REFLEX TO [address] [facility]Flow cytometry [id number] 23:43:59 Test Item Value Reference Range Interpretation Comments Case number (test code = [id number]) Flow cytometry evaluation See link below for PDF (test code = 0795840) PDF [facility] Report [facility] [id number] 23:43:07 Test Item Value Reference Range Interpretation Comments Case number (test code = [id number]) Surgical pathology See link below for report (test code = PDF Lab Report 2255) Result status (test code This is Final Report = [id number]) for [id number] [facility] Knee wo contrast [id number] 11:14:00PROCEDURE INFORMATION:Exam: MR Right Lower Extremity Joint Without Contrast, KneeExam date and time:01/08/2021 11:16 AMAge: 55 years oldClinical indication: Other tear of lateral meniscus, current injury, rightknee, initial encounter; Additional info: /s83.281a other tear of lateralmeniscus, current injury, right knee, initial encounterTECHNIQUE:Imaging protocol: MR of the Right lower extremity joint without contrast. Examfocused on the knee.COMPARISON:CR KNEE 3 VIEWS DX, RIGHT 12/13/2014 10:25 AMFINDINGS:Menisci:Medial meniscus: Intact.Lateral meniscus: There is a complex tear of the lateral meniscus.Cartilage:Medial compartment: There is very minimal chondral surface irregularity.Lateral compartment: There is a large region of full thickness chondral lossalong the weight-bearing surfaces with yiii-sr-oomv contact. Diffuse chondralthinning and irregularity along residual cartilage.Patellofemoralcompartment: There is diffuse chondral fraying and fibrillationalong the dorsal patella mild in the medial and lateral patellar facets andpatellar apex.Ligaments: Cruciate and collateral ligaments are intact.Extensor mechanism: The quadriceps tendon, and the patellar tendon are intact.Muscles: No signal abnormality in the muscles.Bone: No evidence of acute fracture. There are osteophytes. Scatteredregions of mild degenerative marrow edema and cystic change.Soft tissue: There is a small joint effusion with evidence of synovitis. Trace Martin's cyst. Mild popliteus bursitis with internal debris. Smallintra-articular body within the popliteus bursa.IMPRESSION:1. Complex tear of the lateral meniscus.2.Tricompartmental degenerative change and cartilage loss, most pronounced inthe lateral compartment. Large region of full thickness chondral loss alongthe weight-bearing surfaces with underlying ijzp-dw-pseu contact of the lateralcompartment. Scattered degenerative marrow edema and cystic changes.3. Small joint effusion with synovitis. Mild popliteus bursitis with internaldebris.Tommie Churchill MD On 01/09/2021 09:26:53; [id number]--Hwbn by: Tommie Churchill MDDictated Date/time: 01/09/21 09:27Electronically Signed by: Tommie Churchill MD 01/09/2109:27FINAL REPORTUT Physicians[U] XR KNEE 3 VWS [id number] 09:06:00Images acquired, not reported on this accession number.[facility][U] XR KNEE 3 VWS [id number] 09:43:00Images acquired, not reported on this accession number.[facility] PhysiciansOb/Ywb0474-86-12 14:06:02UnknownMemorial HermannOb/[facility] 2014-06-06 14:06:02UnknownMemorial NhhxrfbSkkerofqd0810-12-61 20:00:005.9 [facility] EdarmlrRfabgddsa5212-54-57 20:00:24712Ngywaxek HermannChemistry 2014-05-20 20:00:78250Mnfylbfc HpjxgrgSxedcptwa6498-28-55 20:00:0084[facility] FwaetdsEttmmrnzx2000-13-57 20:00:0088[facility] TvegrpoYhcoxvkjo5111-14-50 20:00:77046 MEQ/LMemorial QpxbmzuFpnasrvxr3621-94-51 20:00:003.8 MEQ/LMemorial EulmyiyOzbqtofuk7330-14-77 20:00:001.1[facility] TysgvfnAzpymgptu0384-95-52 20:00:0028[facility] PktsmixIgidrleya8306-66-18 20:00:00 Test Item Value Reference Range Interpretation Comments BUN/CREAT (test code = BUN/CREAT) 25 1 6-25 [facility] MilggwwGsakwhroo9348-34-97 20:00:003.7[facility]annChemistry 2014-05-20 20:00:009.6[facility] IhzaexvCgssoqvth1476-55-79 20:00:0022[facility] KpbxxmtIiltbvupw4392-45-93 20:00:0025[facility] RwqthcbWdinuxqaq2848-97-81 20:00:0064[facility] JuajjrzImygikxuh2950-77-55 20:00:000.757[facility] Gzmokdlmqw9378-07-42 20:00:0011.9[facility] KwqhkvaTstmrxbwpc6693-60-69 20:00:00 34.9[facility] DsuxfcuLrtmamaxeo9610-64-40 20:00:24119 K/CMMMemorial [place] Otppzdkzmm1525-50-09 20:00:00Light YellowMemorial SkslbszIisqopkff1083-60-17 20:00:005.9[facility] DmfefmhFhieykwzc5358-35-13 20:00:84978Rnjkqeuq [facility] Lorbbyudn5785-90-98 20:00:68966Cvkxbnwu YduraxiCkoowpawh5512-91-67 20:00:0084 [facility] QnrelhdXkkvlktda0281-70-73 20:00:0088[facility]Chem[facility] 2014-05-20 20:00:41975 MEQ/LMemorial EmcswweAwnolmpbj7587-31-31 20:00:003.8 MEQ/LMemorial CaauyjkGzxugkegt5745-65-72 20:00:001.1[facility] 2014-05-20 20:00:0028[facility] WceuzhzLbyvzcqls2820-75-93 20:00:00 Test Item Value Reference Range Interpretation Comments BUN/CREAT (test code = BUN/CREAT) 25 1 6-25 [facility] BgjdcskJkqgbyatd8619-79-88 20:00:003.7[facility] 2014-05-20 20:00:009.6[facility] QwhiighChsjddhbi7138-68-83 20:00:0022[facility] FpfonmmQlfnplvuq4699-23-04 20:00:0025[facility] JrnleniBdmwbuiyt5007-36-90 20:00:0064[facility] GnvobhqVwmgdohff2636-12-31 20:00:000.757[facility] Tuxyjdxrgd6239-80-02 20:00:0011.9[facility] HbqnqjzBrkljhmvcw1902-71-01 20:00:00 34.9[facility] HdefuwxRfhnovbasw2010-94-38 20:00:11599 K/CMMMemorial [place] Dfhiyngsir6833-21-59 20:00:00Light YellowMemorial JnsdyoeLxznwzskg0705-12-35 17:36:8363835Clbjciqt TvktpbbMqkcbevwa8560-31-20 17:36:0031.49[facility] Kbbxtgxox5739-45-61 17:36:0016[facility] WufifbaUbrhfblhm3902-08-93 17:36:4841760 [facility] KoaphidQykshrtab8574-80-79 17:36:0031.49[facility] 2013-12-10 17:36:0016Mem[facility] UhhuoazNoutuyruv5694-09-00 17:36:5632666Yobalwzp VdbsmlcQqcpqzjik5369-82-17 17:36:0031.49[facility] XfrxgybFibzhzchl0185-26-19 17:36:0016Mem[facility] ClgampxDyduwkouo8553-85-14 17:36:4548350Ttlirisw [facility] Qzhzsecfu8544-02-53 17:36:0031.49[facility] SaatzrwFuqmobfei5255-44-47 17:36:0016 [facility] TdsybhnYdhhktuhs9076-51-17 22:26:96630 MEQ/LMemorial HermannChemistry 2013-11-02 22:26:004.6 MEQ/LMemorial VpvpycpOqdrpitvu5159-58-37 22:26:001.1 [facility] LtodlaoBrivfbvbn8421-44-21 22:26:0023[facility]Chem[facility] 2013-11-02 22:26:52548 MEQ/LMemorial IaecigrYjubuqlsq0971-82-13 22:26:004.6 MEQ/LMemorial FdjoupsEkvspfsbj6355-11-90 22:26:001.1[facility] 2013-11-02 22:26:0023[facility] McgdkugEcythphpy3288-32-49 22:26:00 Test Item Value Reference Range Interpretation Comments BUN/CREAT (test code = BUN/CREAT) 21 1 6-25 [facility] PenmhixLyznpsopc5107-64-75 22:26:003.9[facility] 2013-11-02 22:26:009.5[facility] GqncnhjRnywtwecf0769-06-20 22:26:0021[facility] OzzljfbGdqmcdykt5576-07-17 22:26:0016[facility] NavgunzGsghnvpbn6277-81-64 22:26:0060[facility] GeprhkeTnrgupuhk3642-59-49 22:26:009.5[facility] Iqrblfstl7095-60-33 22:26:0021[facility] EmaojzrKkwkerlru6621-10-19 22:26:0016 [facility] GtccjadEsyukfftq7451-38-00 22:26:0060[facility] 2013-11-02 22:26:21954 MEQ/LMemorial OshsvffYjotvhjst2845-78-68 22:26:004.6 MEQ/LMemorial IkncwtsQnmfbcnhd9078-29-29 22:26:001.1[facility] 2013-11-02 22:26:0023[facility] IuvnzzpDbdusldqa6523-67-91 22:26:37100 MEQ/L [facility] InchkelXpkmxifck3968-06-32 22:26:004.6 MEQ/LMemorial HermannChemistry 2013-11-02 22:26:001.1[facility] XrpdjhzScsbcxsti0854-68-26 22:26:0023Mem[facility] CklwukuMehpodiey7926-43-55 22:26:00 Test Item Value Reference Range Interpretation Comments BUN/CREAT (test code = BUN/CREAT) 03-09 [facility] VrctkcmOfbqtyhod1948-65-09 22:26:003.9[facility] 2013-11-02 22:26:50751 MEQ/LMemorial WanuorrFqasqzuen6593-47-78 22:26:004.6 MEQ/LMemorial NgntkwdMpmzfctpw5206-68-78 22:26:001.1[facility] 2013-11-02 22:26:0023Mem[facility] ZjrskdkHqpupwxcj5927-85-32 22:26:09854 MEQ/L [facility] AbvrfetGjtzuvfgu7066-55-28 22:26:004.6 MEQ/LMemorial HermannChemistry 2013-11-02 22:26:001.emorial XkswpdrVvylrofad0983-97-87 22:26:0023Mem[facility] SwcvttbEjdaykorm6187-29-59 22:26:00 Test Item Value Reference Range Interpretation Comments BUN/CREAT (test code = BUN/CREAT) 03-09 [facility] XhbcwvvYpbauuuio3576-72-74 22:26:003.9[facility] 2013-11-02 22:26:009.5[facility] IbocihvSrtzonfut3530-98-79 22:26:0021[facility] RfackhnEyxylwfey7202-20-75 22:26:0016Mem[facility] ZacagmhOkwnoampg7797-99-18 22:26:0060[facility] WvkdkbiMdbkezfgn7607-27-00 22:26:009.5[facility] Glwxzavyh0984-37-21 22:26:0021Mem[facility] WzqrwwmVjtwwtfjf9725-69-55 22:26:0016 [facility] YtetxddLoxiaafax3369-08-08 22:26:0060[facility] 2013-11-02 22:26:76604 MEQ/LMemorial EcakdryXrdgrkibu4379-49-74 22:26:004.6 MEQ/LMemorial DduewbmJwibsgkrt8036-36-06 22:26:001.1[facility] 2013-11-02 22:26:0023[facility] IpbggxqUkarnvdaj9449-87-99 22:26:45957 MEQ/L [facility] EhwrcagHheilixnd8964-81-89 22:26:004.6 MEQ/LMemorial [facility]annChemistry 2013-11-02 22:26:001.1[facility] EfoqkgyVtqqyqqlp0751-96-79 22:26:0023Mem[facility] EgiyckbPactxvskf7496-76-78 22:26:00 Test Item Value Reference Range Interpretation Comments BUN/CREAT (test code = BUN/CREAT) 21 1 6-25 [facility] WmyegycQtbjyztzh6999-42-11 22:26:003.9[facility] 2012-06-29 21:30:11044Cqyvquhs KfahyplHiryfbmja9026-33-43 21:30:70103 MEQ/L [facility] VcnerzqKkglaajlz6801-70-40 21:30:004.2 MEQ/LMemorial HermannChemistry 2012-06-29 21:30:001.0[facility] OyurynhCaxqngykq6953-72-97 21:30:50332Afakkriw TvrehnuOewrrggjg9286-91-45 21:30:03795 MEQ/LMemorial UwcjwqpJicbggdts9896-23-32 21:30:004.2 MEQ/LMemorial NandhecKsjstnefv6305-51-50 21:30:001.0[facility] Yyzxgcvdt9531-60-80 21:30:0021[facility] FmhugijThxzxdzsc0597-98-15 21:30:00 Test Item Value Reference Range Interpretation Comments BUN/CREAT (test code = BUN/CREAT) 03-09 [facility] SjuieegXbyvmvczx2556-57-49 21:30:004.2[facility] 2012-06-29 21:30:009.6[facility] GxjchwaFyaveruum2563-80-81 21:30:0059[facility] NkicvrgIjpqidowp7325-87-49 21:30:0041[facility] FxlzuzdEhejlsjcq8716-30-24 21:30:0058[facility] OmkzjgoIgiwrtzfom3028-45-43 21:30:0012.1[facility] Nnjpxfxcux8582-53-57 21:30:0035.6[facility] EnlmxvsZhakgvnido1098-60-52 21:30:00 262 K/CMMMemorial PmmstinQjokywcu3514-49-38 21:30:00>8.0 U/mLMemorial [place] Zoqzybgr8393-84-17 21:30:00>8.0 U/mLMemorial ZxgkobaVakmkcwt6087-13-63 21:30:00>8.0 U/mLMemorial QmorrfgQfiespwaz6379-78-51 21:30:59827Fibmhujb GbqywerPlssmvjwi5363-85-14 21:30:20485 MEQ/LMemorial AxuylotZoimjxyhi6525-72-46 21:30:004.2 MEQ/LMemorial YzfkogqIyaepgwrt7142-44-28 21:30:001.0[facility] Mfzrkoinm0592-59-86 21:30:76806Fzrhrecq IhcnwdyAosumrivj0480-11-51 21:30:98475 MEQ/LMemorial GyvxhrzQqyenftkl1217-02-39 21:30:004.2 MEQ/LMem[facility] [place] Rclbgzcqq2088-89-17 21:30:001.0[facility] TcqhvxvLgacfxaav4932-14-89 21:30:0021 [facility] HdbgdwxRxfqmqblc5322-11-40 21:30:00 Test Item Value Reference Range Interpretation Comments BUN/CREAT (test code = BUN/CREAT) 03-09 [facility] EofhcacOdxuaflls5025-45-93 21:30:004.2[facility] 2012-06-29 21:30:009.6[facility] AeokhfmXntlymfsn6217-75-99 21:30:0059[facility] SffycgsDiczytazc6580-68-83 21:30:0041[facility] JlniulxHvhwezcch4956-75-78 21:30:0058[facility] EaxwkjpJgoamgopfg5668-32-53 21:30:0012.1[facility] Vamzjpxeue0410-23-96 21:30:0035.6[facility] RadvdapZwzfzbrjpd4608-30-46 21:30:00 262 K/CMMMemorial IyomseaWadjxxxu5618-95-43 21:30:00>8.0 U/mLMemorial [place] Wvdflhnr8552-65-74 21:30:00>8.0 U/mLMemorial EwhrvimLvcygcui8598-12-18 21:30:00>8.0 U/mLMemorial DqavivuVgashuwrm0669-07-30 20:00:003.7[facility] KfajpmiQxyydtlla2761-87-00 20:00:0048[facility] BvqwcqxOqcsdwvtl8758-57-11 20:00:0021[facility] UleubgiNqjmjxtof5434-06-45 20:00:0026[facility] Kxotpskyu3383-94-78 20:00:003.7[facility] CwlgjynGtvurhafx3052-21-64 20:00:0048 [facility] NkpkoavZugiygwae7512-70-45 20:00:0021[facility] 2012-04-20 20:00:0026[facility] HukwnrdAokernabg5428-04-76 20:00:003.7[facility] PjuvgulKiugrxxxj4197-95-40 20:00:0048[facility] DkynhvgTfflxbwaw2494-94-52 20:00:0021[facility] IjuipkrIbtkwcpxj9145-90-88 20:00:0026[facility] Nujbvcxfi1304-89-96 20:00:003.7[facility] DqvkmzeYismsopcc9701-56-74 20:00:0048 [facility] FzzyqjgQlekiozwj4080-76-56 20:00:0021[facility] 2012-04-20 20:00:0026[facility] NtvyddaEcnstsaav8628-99-36 12:39:001.150[facility] PtkmnodCjidboict8176-71-14 12:39:001.150[facility] RwayfdcPgqefhwon6361-30-35 12:39:001.150[facility] KysfnvhZwxopmmja5735-58-20 12:39:001.150[facility] Klexevabk6385-73-75 11:50:43387Rqiyvrbv KzxhzxwCrqdczike4485-92-81 11:50:18541 [facility] GrodtdcZxostdnwr4561-63-79 11:50:72065Mbjdtsqs [facility]Chem[facility] 2012-03-26 11:50:05068Vlqbdbnh BnynvdtLlqyyaiai5546-23-21 11:50:51268Xfndrfvq LfpzoaaUvqpeldil2031-85-25 11:50:80139Zgvtbntx RobpmifRqajxwerg0348-16-88 11:50:94589Vrjbznpb ZaramtoTyzeokxiw9891-86-52 11:50:99723Jsffjzxd [place] Bspgptlkpw6182-85-01 09:07:00YellowMemorial QyrvnyhIjaojpqpkt0015-81-71 09:07:00 YellowMemorial DeemyhqIwujgeufsp7337-83-50 09:07:00YellowMemorial [facility] Tnwwxwiujd3643-69-08 09:07:00YellowMemorial AteijcsWviotlyvl1397-56-58 08:45:00 99[facility] OqnnfovVtgrfgkxe6917-14-02 08:45:0079[facility] 2012-03-26 08:45:0099[facility] VvuxhbnZowikbksv1023-85-60 08:45:0079[facility] SgzkpntGstovubbd0035-75-91 08:45:0099[facility] HawcioyYdtijwrqe8831-01-74 08:45:0079[facility] TcwookbWydmmargl9911-98-55 08:45:0099[facility] Lqkvgviyt5951-17-75 08:45:0079[facility] MfkrzebEpbosnkebh7932-44-38 07:24:0013.0 [facility] UlnuanhKskqyqktbq0735-39-31 07:24:0037.6[facility]ann[facility] 2012-03-26 07:24:33793 X10E3/ULMemorial HfmbpfiZhdssuepnn1868-11-73 07:24:0013.0 [facility] EpxzobgToehgouits0863-58-87 07:24:0037.6[facility]ann[facility] 2012-03-26 07:24:33243 X10E3/ULMemorial TjihksuVvrethlzv7329-02-68 07:23:0017 [facility] BfehxtyDmkkqztvc7363-89-11 07:23:000.98[facility] 2012-03-26 07:23:00 Test Item Value Reference Range Interpretation Comments BUN/CREAT (test code = BUN/CREAT) 17 06-07 [facility] SjqhkvdShnesacel0696-52-83 07:23:99064Rxwfiwst [facility] 2012-03-26 07:23:0017[facility] EovwphnZsnaycjzi3184-92-92 07:23:000.98[facility] AwvmcnjVzyvlmoeu7795-54-54 07:23:00 Test Item Value Reference Range Interpretation Comments BUN/CREAT (test code = BUN/CREAT) 17 1 - [facility] BnelnjfYexrfzopw7375-35-07 07:23:30630Ccxdopyt [facility] 2012-03-26 07:23:003.9[facility] QiiclhwSljuvdrio1929-17-00 07:23:009.5[facility] LmbqkfhHqgxiguic0855-97-20 07:23:004.1[facility] IiakekgAuurlbcbz6455-43-00 07:23:0056[facility] MbamnegQbqfjlpmp6698-46-54 07:23:0029[facility] Uwxzsorna9505-86-20 07:23:0060[facility] UefqpaiBjsuanabl2922-10-72 07:23:0097 [facility] FprpwmjCqqqfgtkb4087-17-05 07:23:0078[facility] 2012-03-26 07:23:36869Zvjwsaex IvbsbsvNqihbcdml8199-04-39 07:23:14091.0[facility] IaiwjzgHlkstwydp5384-17-21 07:23:45249Aiprheeb ZpxafkdKndtfwpla9059-90-62 07:23:0097[facility] DkptnwpBfvdmkxnv9153-00-65 07:23:0017[facility] Clffaqolh7877-44-01 07:23:000.98[facility] RbtsuzfUsgtqqora4845-22-95 07:23:00 Test Item Value Reference Range Interpretation Comments BUN/CREAT (test code = BUN/CREAT) 17 06-07 [facility] PkjsfzlRwvbndwzw8239-05-35 07:23:18070Pudjribp [facility] 2012-03-26 07:23:0017[facility] QscbdagCjswmgpnu3310-57-05 07:23:000.98[facility] TieequzOexwtrxni3572-76-24 07:23:00 Test Item Value Reference Range Interpretation Comments BUN/CREAT (test code = BUN/CREAT) 17 06-07 [facility] ZekhkcuZwmmawvcc8651-78-59 07:23:70889Yipkanrh [facility] 2012-03-26 07:23:003.9[facility] CpzouqfXcsntqefk7835-63-74 07:23:009.5[facility] IgohqwzWurepvhbr0004-95-35 07:23:004.1[facility] HckavpuKpjckezoi7409-79-45 07:23:0056[facility] OsjpbshUimrehwyw4393-26-70 07:23:0029[facility] Asanrtuph3717-35-44 07:23:0060[facility] SnoddddGlljssdgh8160-14-52 07:23:0097 [facility] YywitdnGqpskhesm3353-46-69 07:23:0078[facility] 2012-03-26 07:23:54767Vdwmchse ZfowkxlSuipsdrqi4702-47-81 07:23:74205.0[facility] WvrclayNbpxwqnla0156-64-32 07:23:79272Iaiigltl QqrvvbsIxwzhofja4116-19-90 07:23:0097[facility] HermannOb/Fwv6056-91-05 03:29:37NormalMemorial HermannOb/[facility] 2011-02-14 03:29:37NormalMemorial HermannOb/Yte3170-02-14 03:29:37NormalMemorial OntrwtwIwvsmvpfk6058-78-76 03:29:37NormalMemorial EtpiktxAkxeiwzbb8945-00-30 03:29:37NormalMemorial HermannOb/Lhd1371-19-00 03:29:37NormalMemorial [place] Ob/Ypn9578-32-31 03:29:37NormalMemorial HermannOb/Bns5883-61-67 03:29:37Normal [facility] JyrlbomGhfbdshit9399-90-88 03:29:37NormalMemorial HermannPathology 2011-02-14 03:29:37NormalMemorial [facility]
[2023-02-24] MEDS ORDERED: NA CHLORIDE 0.9% 1,000 ML ONE (16:23)
--- NOTE | 2023-02-24 16:51 | RAD REPORT ---
EXAM DESCRIPTION: CT - Head C Spine Mpr Wo Con - 02/24/2023 4:35 pm CLINICAL HISTORY: Head and neck injury status post fall. Head and neck pain COMPARISON: None. TECHNIQUE: Computed axial tomography of the head and cervical spine was obtained. Sagittal and coronal reconstruction was performed. All CT scans are performed using dose optimization technique as appropriate and may include automated exposure control or mA/KV adjustment according to patient size. FINDINGS: An intracranial bleed is not seen. The ventricles are normal in caliber. No significant hypodensity within the brain. An extra-axial fluid collection is not noted. Fluid within the visualized sinuses and mastoids is not seen A cervical fracture is not visualized. No dislocation is noted. Right pleural effusion IMPRESSION: No acute intracranial abnormality is seen. A cervical fracture is not visualized. If the patient continues to have symptoms to suggest intracranial /spinal cord pathology then MRI wou ld be recommended
[2023-02-24 17:15] LABS: Absolute Lymphocytes (CBC) 0.2 K/uL (0.7-4.9); Hematocrit 25.2 % (36.0-45.0); Lymphocytes % 1.9 % (15.3-44.8); MCV 89.5 fL (80-100); MPV 8.9 fL (7.6-11.3); RBC Red Blood Cell Count 2.81 M/uL (3.86-4.86)
--- NOTE | 2023-02-24 17:17 | RAD REPORT ---
EXAM DESCRIPTION: [place] Single View02/24/2023 5:10 pm CLINICAL HISTORY: Hypotension COMPARISON: none FINDINGS: Opacification of the mid and lower right hemithorax Left lung appears clear. Heart is normal size IMPRESSION: Opacification of the mid and lower right hemithorax probably representing a combination of pleural effusion and pneumonia. This should be followed until it has cleared to help exclude a post obstructive process/underlying ma ss
[2023-02-24 17:19] LABS: Protime INR 1.73
[2023-02-24] MEDS ORDERED: NOREPINEPHRINE BITARTRATE/D5W 4 MG/250 ML BAG IV ONE ×2 (17:34→23:36)
[2023-02-24 17:35] LABS: Albumin 1.7 g/dL (3.4-5.0); Potassium 2.9 mEq/L (3.5-5.1); Protein, Total 5.8 g/dL (6.4-8.2)
--- NOTE | 2023-02-24 18:00 | ER ---
Nurse's Notes [facility] Name: Nanci Dimas Age: 58 yrs Sex: Female : 1965 Arrival Date: 02/24/2023 Time: 15:39 Bed 4 Private MD: Diagnosis: Severe sepsis with septic shock;Pneumonia, unspecified organism;Anemia, unspecified;Hypokalemia Presentation: 02/24 15:40 Chief complaint: EMS states: Pt is from home, has been experiencing lethargy, weakness, ph and confusion since Friday. BP has also been low at home, however, pt has continued to take her BP medication, had a syncopal episode in her garage today, fell and hit her head on a space heater. Initial BP 70/40, HR 90s and appeared irregular, BGL 180, 22G IV to LAC, 200 NS given, pt oriented to person and place upon arrival to ED, denies pain but reports that she has been having diarrhea. Coronavirus screen: Vaccine status: Patient reports being unvaccinated. Ebola Screen: No symptoms or risks identified at this time. Initial Sepsis Screen: Does the patient meet any 2 criteria? RR > 20 per min. Systolic BP < 90 mmHg. Altered Mental Status. HR > 90 bpm. Yes Does the patient have a suspected source of infection? No. Patient's initial sepsis screen is negative. Risk Assessment: Do you want to hurt yourself or someone else? Patient reports no desire to harm self or others. Onset of symptoms was February 24, 2023. 15:40 Method Of Arrival: EMS: [facility] 15:40 Acuity: HALLIE 2 ph Triage Assessment: 15:47 General: Appears in no apparent distress. Behavior is cooperative, drowsy. Pain: Denies ph pain. Neuro: Level of Consciousness is awake, obeys commands, confused, lethargic, Oriented to person, place. Cardiovascular: Capillary refill < 3 seconds in bilateral fingers Patient's skin is warm and dry. Respiratory: Airway is patent Respiratory effort is even, unlabored. GI: Reports diarrhea, Patient currently denies abdominal pain, vomiting. : Denies burning with urination, urinary frequency. Musculoskeletal: Circulation, motion, and sensation intact. Range of motion: intact in all extremities. Historical: - Allergies: 15:46 No Known Allergies; ph - Home Meds: 15:46 losartan [Active]; ph - PMHx: 15:46 Hypertensive disorder; ph - Immunization history:: Adult Immunizations unknown. - Social history:: Smoking status: Patient denies any tobacco usage or history of. Screenin:48 [facility] ED Fall Risk Assessment (Adult) History of falling in the last 3 months, ph including since admission Yes- physiologic fall (2 pts) Confusion or Disorientation Yes (5 pts) Intoxicated or Sedated No (0 pts) Impaired Gait No (0 pts) Mobility Assist Device Used No (0 pt) Altered Elimination No (0 pt) Score/Fall Risk Level 3 or more points = High Risk Oriented to surroundings, Maintained a safe environment, Hourly rounding (assess needs \T\ fall precautionary measures) done, Used ambulatory aids as needed (educated on \T\ assisted with). Abuse screen: Denies threats or abuse. Denies injuries from another. Nutritional screening: No deficits noted. Tuberculosis screening: No symptoms or risk factors identified. Assessment: 16:13 General: SEE TRIAGE ASSESSMENT. ph 16:19 Reassessment: Patient appears in no apparent distress at this time. Patient and/or ph family updated on plan of care and expected duration. Pain level reassessed. Pt taken to CT via stretcher, IV fluid bolus infusing. 18:10 Reassessment: Patient appears in no apparent distress at this time. Patient and/or ph family updated on plan of care and expected duration. Pain level reassessed. Pt awake and alert, family at bedside. 18:58 Reassessment: Patient appears in no apparent distress at this time. Patient and/or ph family updated on plan of care and expected duration. Pain level reassessed. 19:00 General: Appears in no apparent distress. comfortable, well groomed, well developed. pf1 19:00 Pain: Denies pain. Neuro: Level of Consciousness is awake, alert, obeys commands, pf1 Oriented to person, place, time, situation. Cardiovascular: No deficits noted. Capillary refill < 3 seconds Patient's skin is warm and dry. 19:00 Respiratory: Airway is patent Respiratory effort is even, unlabored, Respiratory pf1 pattern is regular, symmetrical, Breath sounds are clear bilaterally. 19:00 Neuro: Reports patient stated fell and hit posterior head while standing in the garage. pf1 GI: No deficits noted. Abdomen is round non-distended, Bowel sounds present X 4 quads. : No deficits noted. No signs and/or symptoms were reported regarding the genitourinary system. EENT: No deficits noted. No signs and/or symptoms were reported regarding the EENT system. Derm: Reports abrasion to posterior head. 20:00 General: attempted patient report, nurse to call back. pf1 20:35 Reassessment: attempted patient report, nurse to call back. pf1 Vital Signs: 15:40 BP 80 / 53; Pulse 103; Resp 24; Temp 97.5; Pulse Ox 98% on R/A; Weight 93.89 kg; Height ph 5 ft. 8 in. ; 16:10 BP 93 / 52; Pulse 94; Resp 24; Pulse Ox 98% on R/A; ph 16:30 BP 82 / 47; Pulse 98; Resp 24; Pulse Ox 96% on R/A; ph 17:00 BP 81 / 60; Pulse 92; Resp 24; Pulse Ox 96% on R/A; ph 17:30 BP 116 / 69; Pulse 96; Resp 24; Pulse Ox 96% on R/A; ph 18:10 BP 107 / 63; Pulse 110; Resp 26; Pulse Ox 95% on R/A; ph 18:58 BP 115 / 69; Pulse 101; Resp 26; Pulse Ox 96% on R/A; ph 19:30 BP 113 / 64; Pulse 101; Resp 26; Temp 100.2; Pulse Ox 98% on R/A; Pain 0/10; pf1 20:00 BP 110 / 64; Pulse 97; Resp 14; Pulse Ox 98% on R/A; Pain 0/10; pf1 15:40 Body Mass Index 31.47 (93.89 kg, 172.72 cm) ph 19:30 Pain Scale: Adult pf1 20:00 Pain Scale: Adult pf1 ED Course: 15:40 Patient arrived in ED. ko1 15:44 Santo Hylton DO is Attending Physician. ms3 15:46 Triage completed. ph 15:48 Arm band placed on Patient placed in an exam room, on a stretcher, on monitoring analyst, ph on pulse oximetry. 15:48 Patient has correct armband on for positive identification. Placed in gown. Call light ph in reach. Side rails up X2. Client placed on continuous cardiac and pulse oximetry monitoring. NIBP monitoring applied. Door closed. Noise minimized. Warm blanket given. Pillow given. 15:54 Haritha Malone, RN is Primary Nurse. ph 16:02 EKG done, by ED staff, reviewed by Santo Hylton DO. em1 16:02 Inserted saline lock: 20 gauge in right antecubital area, using aseptic technique. ss Blood collected. 16:37 CT Head C Spine In Process Unspecified. EDMS 17:12 Chest Single View XRAY In Process Unspecified. EDMS 17:35 Assisted provider with central line placement. Set up central line tray. Triple lumen ko1 line placed in left internal jugular. Line placed by Santo Hylton DO Placement verified by blood return, Dressed with Tegaderm, Patient tolerated well. Before procedure, did Practitioner(s) obtain informed consent? Yes. Patient \T\ family education about procedure, CLABSI prevention and S/S of infection? Yes. Time-out/Briefing performed prior to start of procedure? Yes. Was handwashing/sanitizing done immediately prior to procedure? Yes. Was patient positioned to in a way to prevent air embolism? Yes. Was procedure site sterilized? Yes, with chlorhexidine. Was the site allowed to dry? Yes. Was local anesthetic and/or sedation utilized? Yes. During the procedure, did the Practitioner(s) maintain a sterile field? Yes. Were unused ports clamped during insertion? Yes. Was a 2nd qualified MD obtained after 3 unsuccessful insertion attempts? N/A. Was blood aspirated from each lumen? Yes. After the procedure, did the Practitioner(s) clean the site and apply a sterile dressing? Yes. 17:51 CXR XRAY In Process Unspecified. EDMS 17:58 Smith Bailey MD is Hospitalizing Provider. ms3 18:59 Tyesha Aragon MD is Hospitalizing Provider. sb4 21:20 Patient admitted, IV remains in place. pf1 Administered Medications: 15:55 Drug: NS 0.9% IV (30 ml/kg) 30 ml/kg Route: IV; Rate: bolus; Site: left antecubital; ph 18:10 Follow up: Response: No adverse reaction; IV Status: Completed infusion; IV Intake: ph 2000ml 19:00 Follow up: Response: No adverse reaction; Marked relief of symptoms pf1 17:31 Drug: Norepinephrine IV 0.1 mcg/kg/min Route: IV; Rate: calculated rate; Site: left ko1 jugular; 19:49 Follow up: Response: No adverse reaction; Marked relief of symptoms; Blood pressure is pf1 elevated; IV Status: Infusion continued upon admission 17:31 Drug: Norepinephrine IV 0.1 mcg/kg/min Route: IV; Rate: calculated rate; Site: left ph subclavian; 18:15 Drug: Rocephin IV 1 grams Route: IV; Rate: calculated rate; Site: left antecubital; ph 19:00 Follow up: Response: No adverse reaction; Marked relief of symptoms; IV Status: pf1 Completed infusion; IV Intake: 50ml 18:58 Drug: AZITHromycin IVPB 500 mg Route: IVPB; Infused Over: 1 hrs; Site: left subclavian; ph 19:49 Follow up: Response: No adverse reaction; Marked relief of symptoms pf1 19:50 Follow up: IV Status: Infusion continued upon admission pf1 19:35 Drug: Acetaminophen PO 1000 mg Route: PO; pf1 19:50 Follow up: Response: No adverse reaction pf1 20:20 Drug: Potassium Chloride PO 40 mEq Route: PO; pf1 21:00 Follow up: Response: No adverse reaction pf1 20:25 Drug: Potassium Chloride IV 20 mEq Route: IV; Rate: calculated rate; Site: left jugular;pf1 20:59 Follow up: IV Status: Infusion continued upon admission pf1 Medication: 15:48 VIS not applicable for this client. ph Intake: 18:10 IV: 2000ml; Total: 2000ml. ph 19:00 IV: 50ml; Total: 2050ml. pf1 Outcome: 17:59 Decision to Hospitalize by Provider. ms3 21:20 Patient left the ED. pf1 21:20 Admitted to ICU via stretcher, room 2, on monitor, with chart, Report called to pfKris Valenzuela RN 21:20 Condition: stable pf1 21:20 Instructed on the need for admit, Demonstrated understanding of instructions. Signatures: Dispatcher [employer] EDMS Jono Mo em1 Moon Dick RN RN ss Haritha Malone RN RN Santo Hylton DO DO ms3 Lynne Peraza RN RN ko1 Oksana Montague PA-C PAMary Alice Espinoza, RN RN pf1 Corrections: (The following items were deleted from the chart) 02/25 05:43 02/24 21:50 Patient left the ED. pf1 pf1
--- NOTE | 2023-02-24 18:00 | EDPHYS ---
Physician Documentation [facility] Name: Nanci Dimas Age: 58 yrs Sex: Female : 1965 Arrival Date: 02/24/2023 Time: 15:39 Bed 4 Private MD: ED Physician Santo Hylton HPI: 02/24 15:56 This 58 yrs old Black Female presents to ER via EMS with complaints of hypotension. ms3 15:56 58-year-old female with past medical history of hypertension, multiple myeloma presents ms3 for fatigue. Patient states she took a lorazepam on Friday and has had fatigue since that time. Patient did note she fell today and called EMS. Patient denies pain. Patient states she took her losartan and Eliquis today. EMS states they were called out for fall/possible dehydration. On EMS arrival patient's blood pressure was 72/38, heart rate 90s, room air saturation 95%. Patient's blood glucose level was 180. 200 mL of lactated Ringer's were administered.. Historical: - Allergies: 15:46 No Known Allergies; ph - Home Meds: 15:46 losartan [Active]; ph - PMHx: 15:46 Hypertensive disorder; ph - Immunization history:: Adult Immunizations unknown. - Social history:: Smoking status: Patient denies any tobacco usage or history of. ROS: 15:56 Neck: Negative for injury, pain, and swelling, Cardiovascular: Negative for chest pain, ms3 and palpitations. Respiratory: Negative for shortness of breath, cough, wheezing, and pleuritic chest pain, Abdomen/GI: Negative for abdominal pain, nausea, vomiting, diarrhea, and constipation. 15:56 Skin: Negative for injury, rash, and discoloration. 15:56 Constitutional: Positive for fatigue. 15:56 All other systems are negative. Exam: 15:56 Constitutional: This is a well developed, well nourished patient who is awake, alert, ms3 and in no acute distress. Head/Face: Normocephalic, atraumatic. Neck: Trachea midline, no cervical lymphadenopathy. Supple, full range of motion without nuchal rigidity, or vertebral point tenderness. No Meningismus. Chest/axilla: Normal chest wall appearance and motion. Nontender with no deformity. Cardiovascular: Regular rate and rhythm with a normal S1 and S2. No gallops, murmurs, or rubs. Normal PMI, no JVD. No pulse deficits. Respiratory: Lungs have equal breath sounds bilaterally, clear to auscultation and percussion. No rales, rhonchi or wheezes noted. No increased work of breathing, no retractions or nasal flaring. Abdomen/GI: Soft, non-tender, with normal bowel sounds. No distension or tympany. No guarding or rebound. No evidence of tenderness throughout. Skin: Warm, dry with normal turgor. Normal color with no rashes, no lesions, and no evidence of cellulitis. MS/ Extremity: Pulses equal, no cyanosis. Neurovascular intact. Full, normal range of motion. 16:07 ECG was reviewed by the Attending Physician. ms3 Vital Signs: 15:40 BP 80 / 53; Pulse 103; Resp 24; Temp 97.5; Pulse Ox 98% on R/A; Weight 93.89 kg; Height ph 5 ft. 8 in. ; 16:10 BP 93 / 52; Pulse 94; Resp 24; Pulse Ox 98% on R/A; ph 16:30 BP 82 / 47; Pulse 98; Resp 24; Pulse Ox 96% on R/A; ph 17:00 BP 81 / 60; Pulse 92; Resp 24; Pulse Ox 96% on R/A; ph 17:30 BP 116 / 69; Pulse 96; Resp 24; Pulse Ox 96% on R/A; ph 18:10 BP 107 / 63; Pulse 110; Resp 26; Pulse Ox 95% on R/A; ph 18:58 BP 115 / 69; Pulse 101; Resp 26; Pulse Ox 96% on R/A; ph 19:30 BP 113 / 64; Pulse 101; Resp 26; Temp 100.2; Pulse Ox 98% on R/A; Pain 0/10; pf1 20:00 BP 110 / 64; Pulse 97; Resp 14; Pulse Ox 98% on R/A; Pain 0/10; pf1 15:40 Body Mass Index 31.47 (93.89 kg, 172.72 cm) ph 19:30 Pain Scale: Adult pf1 20:00 Pain Scale: Adult pf1 Procedures: 18:15 Central Line: the site was prepped with Chlorohexadine, a triple lumen catheter was ms3 inserted, in the left internal jugular vein, in 1 attempts. placement was verified, by CXR, by blood return, the site was dressed with Tegaderm, using sterile technique, the patient tolerated the procedure, well. MDM: 15:54 Patient medically screened. ms3 15:56 Differential Diagnosis sepsis, Medication reaction vs UTI vs PNA. ms3 17:50 ED course: . ED course: Patient meets septic shock criteria at this time. A. Pneumonia ms3 B. RR>20, WBC >12k C. LA >2. Shock criteria 2 SBP <90 mm HG. Blood cx ordered. Abx ordered. Repeat LA ordered. 30 ml/kg bolus ordered.. 17:57 ED course: Sepsis re-evaluation complete. Levophed currently running at this time.. ms3 18:15 Data reviewed: vital signs, nurses notes, lab test result(s), EKG, radiologic studies, ms3 and as a result, I will admit patient. Consideration of Admission/Observation Patient was admitted/placed on observation. Management of patient was discussed with the following: Hospitalist: JOSE J Javier. I considered the following discharge prescriptions or medication management in the emergency department Medications were administered in the Emergency Department. See MAR. Independent interpretation of the following test(s) in the Emergency Department X-Ray: My interpretation is CXR image reviewed by me shows RLL PNA. Counseling: I had a detailed discussion with the patient and/or guardian regarding: the historical points, exam findings, and any diagnostic results supporting the discharge/admit diagnosis, lab results, radiology results, the need for further work-up and treatment in the hospital. Response to treatment: the patient's symptoms have markedly improved after treatment, and as a result, I will admit patient. 06 15:54 Order name: Blood Culture Adult (2) ms3 12 15:54 Order name: CBC with Diff; Complete Time: 17:49 ms3 12 15:54 Order name: CMP; Complete Time: 17:49 ms3 12 15:54 Order name: Lactate w/ 2H reflex if indic.; Complete Time: 17:49 ms3 12 15:54 Order name: Protime (+inr); Complete Time: 17:49 ms3 02/24 15:54 Order name: Ptt, Activated; Complete Time: 17:49 ms3 02/24 15:54 Order name: Urinalysis w/ reflexes ms3 02/24 20:59 Order name: Lactate w/ 2H reflex if indic. sb4 02/24 21:43 Order name: Lactate w/ 2H reflex if indic. EDMS 12 15:54 Order name: Chest Single View XRAY; Complete Time: 17:49 ms3 02/24 15:58 Order name: CT Head C Spine; Complete Time: 17:49 ms3 12 17:34 Order name: CXR XRAY; Complete Time: 18:10 ms3 02/24 15:54 Order name: EKG; Complete Time: 15:55 ms3 02/24 15:54 Order name: Accucheck; Complete Time: 16:06 ms3 02/24 15:54 Order name: Cardiac monitoring; Complete Time: 16:06 ms3 02/24 15:54 Order name: EKG - Nurse/Tech; Complete Time: 16:02 ms3 02/24 15:54 Order name: IV Saline Lock - Large Bore; Complete Time: 16:06 ms3 02/24 15:54 Order name: Labs collected and sent; Complete Time: 16:06 ms3 02/24 15:54 Order name: O2 Per Protocol; Complete Time: 15:55 ms3 02/24 15:54 Order name: O2 Sat Monitoring; Complete Time: 15:55 ms3 02/24 15:54 Order name: Vital Signs; Complete Time: 15:55 ms3 12 16:17 Order name: Labs - recollect needed: recollect green, blue and lavender top; Complete bd Time: 17:01 12 18:37 Order name: Misc. Order: central line dressing; Complete Time: 18:58 jmm EC:07 Rate is 98 beats/min. Rhythm is regular. QRS [place] is Normal. [place] interval is normal. QRS ms3 interval is normal. QT interval is normal. Clinical impression: Normal ECG. Interpreted by me. Reviewed by me. Administered Medications: 15:55 Drug: NS 0.9% IV (30 ml/kg) 30 ml/kg Route: IV; Rate: bolus; Site: left antecubital; ph 18:10 Follow up: Response: No adverse reaction; IV Status: Completed infusion; IV Intake: ph 2000ml 19:00 Follow up: Response: No adverse reaction; Marked relief of symptoms pf1 17:31 Drug: Norepinephrine IV 0.1 mcg/kg/min Route: IV; Rate: calculated rate; Site: left ko1 jugular; 19:49 Follow up: Response: No adverse reaction; Marked relief of symptoms; Blood pressure is pf1 elevated; IV Status: Infusion continued upon admission 17:31 Drug: Norepinephrine IV 0.1 mcg/kg/min Route: IV; Rate: calculated rate; Site: left ph subclavian; 18:15 Drug: Rocephin IV 1 grams Route: IV; Rate: calculated rate; Site: left antecubital; ph 19:00 Follow up: Response: No adverse reaction; Marked relief of symptoms; IV Status: pf1 Completed infusion; IV Intake: 50ml 18:58 Drug: AZITHromycin IVPB 500 mg Route: IVPB; Infused Over: 1 hrs; Site: left subclavian; ph 19:49 Follow up: Response: No adverse reaction; Marked relief of symptoms pf1 19:50 Follow up: IV Status: Infusion continued upon admission pf1 19:35 Drug: Acetaminophen PO 1000 mg Route: PO; pf1 19:50 Follow up: Response: No adverse reaction pf1 20:20 Drug: Potassium Chloride PO 40 mEq Route: PO; pf1 21:00 Follow up: Response: No adverse reaction pf1 20:25 Drug: Potassium Chloride IV 20 mEq Route: IV; Rate: calculated rate; Site: left jugular;pf1 20:59 Follow up: IV Status: Infusion continued upon admission pf1 Disposition Summary: 02/24/23 17:59 Hospitalization Ordered Hospitalization Status: Inpatient Admission ms3 Location: Intensive Care Unit ms3 Condition: Stable ms3 Problem: new ms3 Symptoms: are unchanged ms3 Bed/Room Type: Standard ms3 Provider: Tyesha Aragon(02/24/23 18:59) sb4 Room Assignment: 2-(02/24/23 19:32) Diagnosis - Severe sepsis with septic shock ms3 - Pneumonia, unspecified organism ms3 - Anemia, unspecified ms3 - Hypokalemia ms3 Forms: - Medication Reconciliation Form ms3 - SBAR form ms3 Critical care time excluding procedures: 18:17 Critical care time: Bedside Care: 40 minutes, Consultation: 10 minutes, Family ms3 Intervention: 10 minutes. Total time: 60 minutes Signatures: Dispatcher [employer] EDMS Dirrim, LorenaGeorge Bautista PA PA jmm Hall, Patricia RN RN ph Rochelle Juarez, RN RN cg Santo Hylton, DO SOTO ms3 Oksana Montague PA-C PA-C sb4 Mary Alice Stahl RN RN pf1 Lynne Peraza RN ko1 Corrections: (The following items were deleted from the chart) 17:57 17:51 ED course: Patient states she does not want resuscitation to include intubation ms3 or CPR. This was witnessed by ZACHERY Lopez RN.. ms3 18:59 17:59 Smith Bailey ms3 sb4 19:28 17:59 ms3 cg 19:32 19:28 7- cg cg
--- NOTE | 2023-02-24 18:03 | RAD REPORT ---
EXAM DESCRIPTION: VIOLAAnupt Single View02/24/2023 5:50 pm CLINICAL HISTORY: Device placement/central venous catheter placement IMPRESSION: Central venous catheter has been placed with its tip 1 centimeter into the right atrium No pneumothorax
[2023-02-24] MEDS ORDERED: AZITHROMYCIN 500 MG INJ IVPB ONE (18:25)
[2023-02-24] MEDS ORDERED: NA CHLORIDE 0.9% 250 ML ONE (18:25)
[2023-02-24] MEDS ORDERED: CEFTRIAXONE 1000 MG/VIAL ONE (18:25)
[2023-02-24] MEDS ORDERED: NA CHLORIDE 0.9% 50 ML ONE (18:25)
[2023-02-24] MEDS ORDERED: LIDOCAINE 1% W/EPI 1:100,000 50 ML MDV ONE (18:32)
--- NOTE | 2023-02-24 18:50 | P.HP ---
Certification for Inpatient Patient admitted to: Inpatient With expected LOS: >2 Midnights Patient will require the following post-hospital care: None Practitioner: I am a practitioner with admitting privileges, knowledge of patient current condition, hospital course, and medical plan of care. Services: Services provided to patient in accordance with Admission requirements found in Title 42 Section 412.3 of the Code of Federal Regulations Patient History Date of Service: 02/24/23 Reason for admission: Pneumonia, Septic Shock History of Present Illness: Ms. Dimas is a 58 year old female with past medical history of hypertension and multiple myeloma who presented to the emergency department with complaints of fatigue and a fall earlier today. She reports noticing lower blood pressure readings over the weekend but continued to take her losartan. She also reports intermittent confusion and mild cough. Chest xray showed "Opacification of the mid and lower right hemithorax probably representing a combination of pleural effusion and pneumonia." Labs significant for WBC 12.6, hemoglobin 8.2, sodium 126, potassium 2.9, chloride 96, BUN 24, creatinine 2.96, lactate 2.4, Tbili 2, AST 113, ALT 110. Blood pressure remained low- 80s systolic despite 30cc/kg fluid bolus therefore a central line was placed and she was started on levophed in the emergency department. She was also started on azithromycin and rocephin. Patient will be admitted for further management of septic shock secondary to pneumonia. Allergies No Known Allergies Allergy (Unverified 02/24/23 21:05) Home medications list reviewed: Yes - Past Medical/Surgical History Diabetic: No -: Hypertension -: Multiple Myeloma Past Surgical History: Patient denies surgical history Psychosocial/ Personal History: Patient lives at home with her family. - Family History Family History: Reviewed- Non-Contributory - Social History Smoking Status: Current every day smoker Alcohol use: No CD- Drugs: No Caffeine use: No Place of Residence: Home Review of Systems General: Weakness Respiratory: Cough Physical Examination - Vital Signs Temperature: 100.2 F Blood Pressure: 110/64 Pulse: 97 Respirations: 14 Pulse Ox (%): 98 - Physical Exam General: Alert, In no apparent distress HEENT: Atraumatic, EOMI, Sclerae nonicteric Neck: Supple, 2+ carotid pulse no bruit Respiratory: Clear to auscultation bilaterally, Normal air movement Cardiovascular: Regular rate/rhythm, Normal S1 S2 Gastrointestinal: Normal bowel sounds, No tenderness Musculoskeletal: No tenderness Integumentary: No rashes Neurological: Normal speech, Normal affect - Studies Laboratory Data (last 24 hrs) 02/24/23 16:55: PT 19.0 H, INR 1.73, APTT 28.6 02/24/23 16:55: Sodium 126 L, Potassium 2.9 L, BUN 24 H, Creatinine 2.96 H, Glucose 118 H, Total Bilirubin 2.0 H, AST 113 H, ALT 110 H, Alkaline Phosphatase 67 02/24/23 16:55: WBC 12.60 H, Hgb 8.2 L, Hct 25.2 L, Plt Count 263 Assessment and Plan - Problems (Diagnosis) (1) Pneumonia Current Visit: Yes Status: Acute Qualifiers: Pneumonia type: due to unspecified organism Laterality: right Lung location: lower lobe of lung Qualified Code(s): J18.9 - Pneumonia, unspecified organism (2) Sepsis Current Visit: Yes Status: Acute Qualifiers: Sepsis type: sepsis due to unspecified organism Sepsis acute organ dysfunction status: with acute organ dysfunction Severe sepsis acute organ dysfunction type: acute renal failure Severe sepsis shock status: with septic shock (3) Hypertension Current Visit: No Status: Chronic Qualifiers: Hypertension type: primary hypertension Qualified Code(s): I10 - Essential (primary) hypertension (4) RIGOBERTO (acute kidney injury) Current Visit: Yes Status: Acute (5) Anemia Current Visit: Yes Status: Chronic Qualifiers: Anemia type: unspecified type Qualified Code(s): D64.9 - Anemia, unspecified (6) Hypokalemia Current Visit: Yes Status: Acute (7) Hyponatremia Current Visit: Yes Status: Acute (8) Multiple myeloma Current Visit: Yes Status: Chronic Qualifiers: Multiple myeloma remission status: unspecified Qualified Code(s): C90.00 - Multiple myeloma not having achieved remission (9) Acute liver failure Current Visit: Yes Status: Acute Qualifiers: Hepatic coma status: without hepatic coma Qualified Code(s): K72.00 - Acute and subacute hepatic failure without coma - Plan Septic shock secondary to pneumonia Continue azithromycin and ceftriaxone. Blood cultures obtained. Patient is non toxic appearing. Slightly lethargic but answering questions and acting appropriately otherwise She is currently requiring levophed, wean as tolerated. Incentive spirometry. She is not hypoxic or requiring supplemental oxygen. Lactate 2.4 -> 1.1 NS with KCl at 100 cc/hr. Acute kidney injury Likely prerenal secondary to sepsis/dehydration hold nephrotoxic agents monitor renal function Acute liver failure likely secondary to sepsis check hepatitis panel trend CMP Multiple myeloma Patient reports multiple myeloma since 1999 states she takes eliquis because her MM medications increase her blood clot risk likely the cause of anemia, unclear how chronic (no prior labs available). check iron studies Hyponatremia likely hypovolemic check serum osmolality, urine osmolality, urine sodium Hypertension hold losartan/hctz Monitor and replete electrolytes per protocol Reconcile and continue home medications Full code Discharge Plan: Home Plan to discharge in: Greater than 2 days - Advance Directives Does patient have a Living Will: No Does patient have a Durable POA for Healthcare: No - Code Status/Comfort Care Code Status Assessed: Yes Code Status: Full Code Physician Review: Patient Assessed, Agree with Above Assessment and Plan Critical Care: No Time Spent Managing Pts Care (In Minutes): 70
[2023-02-24] MEDS ORDERED: ACETAMINOPHEN 500 MG TAB ONE (19:41)
[2023-02-24] MEDS ORDERED: POTASSIUM CL SA 10 MEQ TAB PO ONE (20:20)
[2023-02-24] MEDS ORDERED: KCL 20 MEQ/100 mL IVPB 100 ML IV ONE (20:20)
[2023-02-24] MEDS ORDERED: NICOTINE 21 MG/PAT TD PRN (21:17)
[2023-02-24] MEDS ORDERED: ONDANSETRON 4 MG/2 ML VIAL IV PRN (21:17)
[2023-02-24] MEDS ORDERED: ALBUMIN HUMAN 25% 100 ML IV ONE (21:17)
[2023-02-24] MEDS ORDERED: NOREPINEPHRINE 4 MG in D5W 250 ML IV SCH (21:17)
[2023-02-24] MEDS ORDERED: MAGNESIUM HYDROXIDE 8% 30 ML PO PRN (21:17)
[2023-02-24] MEDS ORDERED: ACETAMINOPHEN 500 MG TAB PO PRN (21:17)
[2023-02-24] MEDS ORDERED: ALBUTEROL 2.5 MG/3 ML NEB SOL NEB PRN (21:17)
[2023-02-24 23:17] LABS: Potassium 2.7 mEq/L (3.5-5.1)
[2023-02-24] MEDS: APIXABAN 2.5 MG TABLET PO SCH (23:18)
[2023-02-24] MEDS: NS KCL 20MEQ 20 MEQ/1,000 ML BAG IV SCH (23:18)
[2023-02-25] MEDS: KCL 20 MEQ/100 mL IVPB 20 MEQ/100 ML BAG IV SCH ×3 (00:15→04:16)
[2023-02-25] MEDS: BENZONATATE 100 MG CAP PO PRN ×2 (04:16→10:03)
[2023-02-25 04:42] LABS: Specific Gravity 1.007 (1.005-1.030); Urine Bacteria <20 /HPF (<20); Urine Bilirubin NEGATIVE (Negative); Urine Blood 2+ (Negative); Urine Clarity Extremely Turbid (Clear); Urine Color Yellow (Yellow); Urine Glucose NEGATIVE (Negative); Urine Mucus Slight /HPF (None Seen); Urine Protein 1+ (Negative); Urine RBC <5 /HPF (None Seen); Urine Urobilinogen Normal (Normal); Urine pH 5.5 (5.0-7.0)
[2023-02-25 05:31] LABS: Absolute Lymphocytes (CBC) 0.2 K/uL (0.7-4.9); Hematocrit 25.6 % (36.0-45.0); Lymphocytes % 1.7 % (15.3-44.8); MCV 88.5 fL (80-100); MPV 9.1 fL (7.6-11.3)
[2023-02-25 06:19] LABS: ALT/SGPT 94 U/L (13-56); AST/SGOT 66 U/L (15-37); Alkaline Phosphatase 79 U/L (45-117); BUN Blood Urea Nitrogen 25 mg/dL (7-18); Bicarbonate 21 mEq/L (21-32); Bilirubin Total 1.9 mg/dL (0.2-1.0); Ferritin 1738.6 ng/mL (8-388); Glomerular Filtration Rate 23 ml/min (=/>90); Glucose Level 145 mg/dL (74-106); HDL Cholesterol 12 mg/dL (40-60); LDL Cholesterol, Calculated 75 mg/dL (<130); Magnesium 2.2 mg/dL (1.6-2.4); Phosphorus 2.1 mg/dL (2.5-4.9); Potassium 3.7 mEq/L (3.5-5.1); Sodium Level 132 mEq/L (136-145); Thyroid Stimulating Hormone 0.566 uIU/mL (0.358-3.740); Transferrin 84 mg/dL (200-360)
[2023-02-25 06:40] LABS: Hepatitis B Core IgM Nonreactive (Nonreactive); Hepatitis B surface AG Interp. Nonreactive (Nonreactive); Hepatitis C Virus Ab Nonreactive (Nonreactive)
[2023-02-25 06:54] LABS: Blood Morphology Comment NOTED (NOT SEEN); Burr Cells FEW; Dohle Bodies PRESENT; Platelet Estimate ADEQ; Target Cells FEW
[2023-02-25] MEDS ORDERED: POTASSIUM CL SA 10 MEQ TAB PO ONE (07:00)
[2023-02-25] MEDS: POTASS/SODIUM PHOSPHATE 1 PKT POWD.PACK PO SCH ×3 (08:00→09:00)
[2023-02-25] MEDS: APIXABAN 2.5 MG TABLET PO SCH ×2 (08:06→21:00)
[2023-02-25] MEDS ORDERED: CEFTRIAXONE 1,000 MG in NA CHLORIDE 0.9% 50 ML IVPB SCH (09:00)
[2023-02-25] MEDS ORDERED: AZITHROMYCIN IV 500 MG in NA CHLORIDE 0.9% 250 ML IVPB SCH (09:00)
[2023-02-25] MEDS: NS KCL 20MEQ 20 MEQ/1,000 ML BAG IV SCH ×3 (10:03→22:43)
--- NOTE | 2023-02-25 12:01 | RAD REPORT ---
EXAM DESCRIPTION: CT - Thorax Wo Con - 02/25/2023 11:26 am CLINICAL HISTORY: pneumonia? COMPARISON: No comparisons FINDINGS: Chest Wall: No suspicious thyroid nodules or pathologic lymphadenopathy. Left IJ approach central line. Tips in the SVC. Lungs: Right lower lobe consolidation. Minimal dependent opacities in the left lung base. Limited by motion . Pleura: Small volume of right pleural fluid. Mediastinum/ayana: No pathologic lymphadenopathy. Pulmonary arteries/Aorta: Limited evaluation without contrast. No aortic aneurysm. Heart: No significant pericardial effusion. Normal heart size. Upper abdomen: No acute abnormality. Bones: No acute abnormality. All CT scans are performed using dose optimization technique as appropriate and may include automated exposure control or mA/KV adjustment according to patient size. IMPRESSION: Dense right lower lobe consolidation probably represents pneumonia in the appropriate cl inical setting. Would suggest close clinical and imaging follow-up to ensure resolution.
--- NOTE | 2023-02-25 12:21 | P.CNS ---
Date of Consult: 02/25/23 Reason for Consult: Right lower lobe pneumonia Chief Complaint: Pneumonia, Septic Shock History of Present Illness: Patient is 58 years of age admitted with septic shock and right lower lobe pneumonia with hypotension hypokalemia apparently she also had some diarrhea which started on vasopressors came worse on the weekend started having bad cough diarrhea ended up in the hospital she is doing much better more alert responsive scan shows a right lower lobe consolidation Allergies No Known Allergies Allergy (Unverified 02/24/23 21:05) Home Medications: Apixaban [Eliquis *] 1 tab PO BID 02/24/23 Losartan/Hydrochlorothiazide [Losartan-Hctz 100-25 mg Tab] 1 tab PO DAILY 02/24/23 Pomalidomide [Pomalyst] 3 mg PO DAILY 02/24/23 Zolpidem Tartrate [Ambien] 10 mg PO BEDTIME PRN PRN 02/24/23 dexAMETHasone [Dexamethasone] 1 tab PO DAILY 02/24/23 - Past Medical/Surgical History Diabetic: No -: Hypertension -: Multiple Myeloma Psychosocial/ Personal History: Patient lives at home with her family. - Family History Mother Medical History: Heart disease, Hypertension, Diabetes - Social History Alcohol use: No CD- Drugs: No Caffeine use: No Place of Residence: Home Review of Systems 10-point ROS is otherwise unremarkable General: Weakness Respiratory: Cough, Shortness of Breath Physical Examination Temp Pulse Resp BP Pulse Ox 97.8 F 100 H 43 H 102/62 99 02/25/23 08:00 02/25/23 09:15 02/25/23 09:15 02/25/23 09:15 02/25/23 06:15 General: Alert, In no apparent distress, Oriented x3 HEENT: Atraumatic Neck: Supple Respiratory: Crackles/rales Cardiovascular: No edema (Right lower lobe), Regular rate/rhythm, Normal S1 S2 Gastrointestinal: Normal bowel sounds, Soft and benign Laboratory Data (last 24 hrs) 02/24/23 16:55: PT 19.0 H, INR 1.73, APTT 28.6 02/24/23 16:55: Sodium 126 L, Potassium 2.9 L, BUN 24 H, Creatinine 2.96 H, Glucose 118 H, Total Bilirubin 2.0 H, AST 113 H, ALT 110 H, Alkaline Phosphatase 67 02/24/23 16:55: WBC 12.60 H, Hgb 8.2 L, Hct 25.2 L, Plt Count 263 - Problems (1) Pneumonia Current Visit: Yes Status: Acute Plan: Patient is 58 years of age admitted with right lower lobe pneumonia septic shock she is getting better on IV fluids vasopressors. With renal failure renal function is improving cultures are pending suspect her hypokalemia was from the diarrhea most likely she has a streptococcal pneumonia and also adding some levofloxacin Qualifiers: Pneumonia type: due to unspecified organism
[2023-02-25] MEDS: CEFEPIME 2 GM in NA CHLORIDE 0.9% 100 ML IV SCH ×2 (13:20→21:00)
[2023-02-25] MEDS: Levofloxacin 750mg IV 750 MG/150 ML BAG IV SCH (13:20)
[2023-02-25] MEDS ORDERED: HYDROCODONE/CHLORPHEN 5 ML/OSYR PO ONE (19:56)
[2023-02-25] MEDS ORDERED: LOPERAMIDE HCL 2 MG CAPSULE PO STA (19:56)
[2023-02-25] MEDS: ALBUTEROL 2.5 MG/3 ML NEB SOL NEB PRN (22:40)
[2023-02-26] MEDS: NS KCL 20MEQ 20 MEQ/1,000 ML BAG IV SCH ×3 (03:17→23:17)
[2023-02-26 04:59] LABS: Absolute Lymphocytes (CBC) 0.3 K/uL (0.7-4.9); Hematocrit 26.2 % (36.0-45.0); Lymphocytes % 2.2 % (15.3-44.8); MCV 88.4 fL (80-100); MPV 9.3 fL (7.6-11.3); RBC Red Blood Cell Count 2.97 M/uL (3.86-4.86)
[2023-02-26 05:30] LABS: Albumin 1.7 g/dL (3.4-5.0); Bilirubin Total 0.9 mg/dL (0.2-1.0); Magnesium 1.9 mg/dL (1.6-2.4); Potassium 3.5 mEq/L (3.5-5.1)
[2023-02-26 05:31] LABS: Phosphorus 1.5 mg/dL (2.5-4.9)
[2023-02-26] MEDS ORDERED: POTASSIUM PHOS IN 0.9 % NACL 15 MMOL/250 ML BAG IV ONE (05:36)
--- NOTE | 2023-02-26 08:22 | EKG ---
Test Date: 2023-02-24 Test Time: 15:59:24 Interior Design Assistant: LEIGH ANN MEASUREMENT RESULTS: Intervals: Rate: 98 DE: 124 QRSD: 82 QT: 374 QTc: 477 [place]: P: 55 DE: 124 QRS: 37 T: 24 INTERPRETIVE STATEMENTS: Sinus rhythm Normal ECG No previous ECG available for comparison Electronically Signed On 02-26-23 08:18:17 CDT by Victor Manuel Coronel
[2023-02-26] MEDS: APIXABAN 2.5 MG TABLET PO SCH ×2 (08:37→20:59)
[2023-02-26] MEDS: POMALYST 3 MG PO SCH (08:38)
[2023-02-26] MEDS ORDERED: ALBUMIN HUMAN 25% 50 ML IV ONE ×2 (08:50→23:09)
[2023-02-26] MEDS: CEFEPIME 2 GM in NA CHLORIDE 0.9% 100 ML IV SCH ×2 (09:00→20:59)
[2023-02-26] MEDS ORDERED: POTASSIUM CL SA 10 MEQ TAB PO ONE (09:00)
[2023-02-26] MEDS: ENSURE HIGH PROTEIN 237 ML CAN PO SCH ×3 (10:11→20:59)
--- NOTE | 2023-02-26 11:08 | RAD REPORT ---
EXAM DESCRIPTION: [place] Single View02/26/2023 10:49 am CLINICAL HISTORY: Shortness of breath COMPARISON: February 25, 2023 FINDINGS: Large right lower lobe consolidation without significant change Left lung appears clear of acute infiltrate. Heart is borderline enlarged. Central venous line in place IMPRESSION: Large right lower lobe consolidation without significant change
[2023-02-26] MEDS: ALBUTEROL 2.5 MG/3 ML NEB SOL NEB PRN (12:00)
[2023-02-26] MEDS ORDERED: HYDROCORTISONE SUC 100 MG INJ IV ONE ×2 (15:09→15:51)
[2023-02-26] MEDS ORDERED: FUROSEMIDE 40 MG/4 ML VIAL IV ONE (15:09)
[2023-02-26] MEDS ORDERED: ALBUMIN HUMAN 25% 100 ML IV ONE (16:00)
[2023-02-26 16:01] LABS: Magnesium 1.8 mg/dL (1.6-2.4); Troponin High Sensitivity 25.3 pg/mL (<58.9)
[2023-02-26 16:07] LABS: Arterial Blood Carboxyhemoglob 1.4 % (0-1.5); Blood Gas Oxyhemoglobin 90.8 % (94-97); Blood O2 Saturation 93.7 % (92-98.5)
[2023-02-26] MEDS: DEXMEDETOMIDINE HCL 200 MCG in NA CHLORIDE 0.9% 98 ML IV SCH (16:20)
[2023-02-26] MEDS ORDERED: FUROSEMIDE 20 MG/ 2ML VIAL IV ONE (23:09)
[2023-02-26] MEDS: HYDROCORTISONE SUC 100 MG INJ IV SCH (23:37)
[2023-02-27] MEDS: DEXMEDETOMIDINE HCL 200 MCG in NA CHLORIDE 0.9% 98 ML IV SCH ×2 (00:21→10:10)
[2023-02-27] MEDS: HYDROCORTISONE SUC 100 MG INJ IV SCH ×3 (01:00→17:14)
[2023-02-27 05:20] LABS: Absolute Lymphocytes (CBC) 0.2 K/uL (0.7-4.9); Hematocrit 24.1 % (36.0-45.0); Lymphocytes % 2.1 % (15.3-44.8); MCV 88.5 fL (80-100); MPV 9.3 fL (7.6-11.3); RBC Red Blood Cell Count 2.73 M/uL (3.86-4.86)
[2023-02-27 05:26] LABS: Bilirubin Total 1.2 mg/dL (0.2-1.0); Phosphorus 3.6 mg/dL (2.5-4.9); Potassium 4.3 mEq/L (3.5-5.1)
[2023-02-27] MEDS: NS KCL 20MEQ 20 MEQ/1,000 ML BAG IV SCH (05:35)
--- NOTE | 2023-02-27 08:15 | RAD REPORT ---
[facility] 7:48 am CLINICAL HISTORY: PNEUMONIA COMPARISON: Chest Single View dated 02/26/2023; Chest Single View dated 02/24/2023; Chest Single View dated 02/24/2023 TECHNIQUE: Portable AP view of the chest. FINDINGS: Stable central interstitial prominence and moderate right effusion with underlying airspac e opacification. Stable left IJ CVC positioning with catheter tip at the superior cavoatrial junction . No pneumothorax. Mild cardiomegaly. Mediastinal contours are unremarkable. IMPRESSION: Stable findings as above.
[2023-02-27] MEDS: ENSURE HIGH PROTEIN 237 ML CAN PO SCH ×3 (09:00→20:29)
[2023-02-27] MEDS: CEFEPIME 2 GM in NA CHLORIDE 0.9% 100 ML IV SCH ×2 (09:01→20:29)
[2023-02-27] MEDS: APIXABAN 2.5 MG TABLET PO SCH ×2 (09:10→20:29)
--- NOTE | 2023-02-27 09:25 | P.PN ---
Date of Service: 02/25/23 Subjective Pt is tachypnea; remains hypoxic Physical Examination - Vital Signs reviewed - Physical Exam General: Alert, In no apparent distress Respiratory: basilar crackles; rhonchi Cardiovascular: Regular rate/rhythm, Normal S1 S2 Gastrointestinal: Normal bowel sounds, No tenderness Musculoskeletal: No tenderness Neurological: No focal deficits Assessment and Plan - Problems (Diagnosis) (1) Pneumonia Current Visit: Yes Status: Acute Pneumonia type: due to unspecified organism Laterality: right Lung location: lower lobe of lung Qualified Code(s): J18.9 - Pneumonia, unspecified organism (2) Sepsis Current Visit: Yes Status: Acute Sepsis type: sepsis due to unspecified organism Sepsis acute organ dysfunction status: with acute organ dysfunction Severe sepsis acute organ dysfunction type: acute renal failure Severe sepsis shock status: with septic shock (3) Hypertension Current Visit: No Status: Chronic Hypertension type: primary hypertension Qualified Code(s): I10 - Essential (primary) hypertension (4) RIGOBERTO (acute kidney injury) Current Visit: Yes Status: Acute (5) Anemia Current Visit: Yes Status: Chronic Qualifiers: Anemia type: unspecified type Qualified Code(s): D64.9 - Anemia, unspecified (6) Hypokalemia Current Visit: Yes Status: Acute (7) Hyponatremia Current Visit: Yes Status: Acute (8) Multiple myeloma Current Visit: Yes Status: Chronic Multiple myeloma remission status: unspecified Qualified Code(s): C90.00 - Multiple myeloma not having achieved remission (9) Acute liver failure Current Visit: Yes Status: Acute Hepatic coma status: without hepatic coma Qualified Code(s): K72.00 - Acute and subacute hepatic failure without coma - Plan Plan: 1. Continue with IV antibiotics 2. Awaiting cultures 3. Repeat chest x-ray 4. CT scan of the chest if pneumonia is not improving- 5. Appreciate pulmonary consultation 6. Continue with nebs as needed 7. O2 per protocol 8. Continue with gentle hydration 9. Repeat labs 10. Continue with IV steroids 11. Continue with electrolytes 12. GI and DVT prophylaxis
--- NOTE | 2023-02-27 09:30 | P.PN ---
Date of Service: 02/26/23 Subjective Pt became very tachypneic and patient is in distress; albumin + Lasix given; spoke with oncologist and apparently on high dose of dexamethasone; stress dose steroids given-initially refusing but had her speak with her oncologist and afterwards she was agreeable Physical Examination - Vital Signs reviewed - Physical Exam General: Alert, In no apparent distress Respiratory: basilar crackles; rhonchi Cardiovascular: Regular rate/rhythm, Normal S1 S2 Gastrointestinal: Normal bowel sounds, No tenderness Musculoskeletal: No tenderness Neurological: No focal deficits Assessment and Plan - Problems (Diagnosis) (1) Pneumonia Current Visit: Yes Status: Acute Pneumonia type: due to unspecified organism Laterality: right Lung location: lower lobe of lung Qualified Code(s): J18.9 - Pneumonia, unspecified organism (2) Sepsis Current Visit: Yes Status: Acute Sepsis type: sepsis due to unspecified organism Sepsis acute organ dysfunction status: with acute organ dysfunction Severe sepsis acute organ dysfunction type: acute renal failure Severe sepsis shock status: with septic shock (3) Hypertension Current Visit: No Status: Chronic Hypertension type: primary hypertension Qualified Code(s): I10 - Essential (primary) hypertension (4) RIGOBERTO (acute kidney injury) Current Visit: Yes Status: Acute (5) Anemia Current Visit: Yes Status: Chronic Qualifiers: Anemia type: unspecified type Qualified Code(s): D64.9 - Anemia, unspecified (6) Hypokalemia Current Visit: Yes Status: Acute (7) Hyponatremia Current Visit: Yes Status: Acute (8) Multiple myeloma Current Visit: Yes Status: Chronic Multiple myeloma remission status: unspecified Qualified Code(s): C90.00 - Multiple myeloma not having achieved remission (9) Acute liver failure Current Visit: Yes Status: Acute Hepatic coma status: without hepatic coma Qualified Code(s): K72.00 - Acute and subacute hepatic failure without coma - Plan Plan: 1. Started on AIRVO; continue with IV antibiotics 2. Awaiting cultures 3. Repeat chest x-ray 4. CT scan of the chest reviewed; large consolidated pneumonia 5. Appreciate pulmonary consultation 6. Continue with nebs as needed 7. Continue with gentle hydration 8. Repeat labs 9. Continue with IV steroids 10. Continue with electrolytes 11. GI and DVT prophylaxis
--- NOTE | 2023-02-27 09:32 | P.PN ---
Date of Service: 02/27/23 Subjective Pt is resting on Precedex; pts respiratory status is improved; continue with diuresing and awaiting ECHO; continue with IV steroids. Physical Examination - Vital Signs reviewed - Physical Exam General: Alert, In no apparent distress Respiratory: basilar crackles; rhonchi R>L Cardiovascular: Regular rate/rhythm, Normal S1 S2 Gastrointestinal: Normal bowel sounds, No tenderness Musculoskeletal: No tenderness Neurological: No focal deficits Assessment and Plan - Problems (Diagnosis) (1) Pneumonia Current Visit: Yes Status: Acute Pneumonia type: due to unspecified organism Laterality: right Lung location: lower lobe of lung Qualified Code(s): J18.9 - Pneumonia, unspecified organism (2) Sepsis Current Visit: Yes Status: Acute Sepsis type: sepsis due to unspecified organism Sepsis acute organ dysfunction status: with acute organ dysfunction Severe sepsis acute organ dysfunction type: acute renal failure Severe sepsis shock status: with septic shock (3) Hypertension Current Visit: No Status: Chronic Hypertension type: primary hypertension Qualified Code(s): I10 - Essential (primary) hypertension (4) RIGOBERTO (acute kidney injury) Current Visit: Yes Status: Acute (5) Anemia Current Visit: Yes Status: Chronic Qualifiers: Anemia type: unspecified type Qualified Code(s): D64.9 - Anemia, unspecified (6) Hypokalemia Current Visit: Yes Status: Acute (7) Hyponatremia Current Visit: Yes Status: Acute (8) Multiple myeloma Current Visit: Yes Status: Chronic Multiple myeloma remission status: unspecified Qualified Code(s): C90.00 - Multiple myeloma not having achieved remission (9) Acute liver failure Current Visit: Yes Status: Acute Hepatic coma status: without hepatic coma Qualified Code(s): K72.00 - Acute and subacute hepatic failure without coma (10) Acute heart failure Current Visit: Yes Status: Acute (11) Adrenal crisis Current Visit: Yes Status: Acute - Plan Plan: 1. Started on AIRVO-wean off and place on O2; continue with IV antibiotics 2. Awaiting cultures 3. Repeat chest x-ray 4. CT scan of the chest reviewed; large consolidated pneumonia 5. Appreciate pulmonary consultation 6. Continue with nebs as needed 7. Continue with gentle hydration 8. Repeat labs 9. Continue with IV steroids 10. Continue with electrolytes 11. GI and DVT prophylaxis
[2023-02-27] MEDS ORDERED: ALBUMIN HUMAN 25% 50 ML IV ONE (10:00)
[2023-02-27] MEDS: FUROSEMIDE 20 MG/ 2ML VIAL IV SCH ×2 (10:09→17:14)
[2023-02-27] MEDS: Levofloxacin 750mg IV 750 MG/150 ML BAG IV SCH (13:19)
[2023-02-27] MEDS: POMALYST 3 MG PO SCH (13:19)
[2023-02-27] MEDS: NA CHLORIDE 0.9% 1,000 ML IV SCH (13:46)
[2023-02-28] MEDS: HYDROCORTISONE SUC 100 MG INJ IV SCH ×2 (00:28→08:31)
[2023-02-28] MEDS: FUROSEMIDE 20 MG/ 2ML VIAL IV SCH ×3 (00:29→16:14)
[2023-02-28] MEDS: DEXMEDETOMIDINE HCL 200 MCG in NA CHLORIDE 0.9% 98 ML IV SCH (00:39)
[2023-02-28 05:13] LABS: Magnesium 1.8 mg/dL (1.6-2.4); Phosphorus 3.4 mg/dL (2.5-4.9); Potassium 3.2 mEq/L (3.5-5.1)
--- NOTE | 2023-02-28 06:52 | ECHO ---
HEIGHT: 5 ft 8 in WEIGHT: 222 lb 4.8 oz DATE OF STUDY: 02/27/[address]: Tyesha Aragon MD 2-DIMENSIONAL: YES M.MODE: YES DOPPLER: YES COLOR FLOW: YES TDS: PORTABLE: DEFINITY: BUBBLE STUDY: DIAGNOSIS: DYSPNEA ON EXERSION, CONGESTIVE HEART FAILURE CARDIAC HISTORY: CATHERIZATION: SURGERY: PROSTHETIC VALVE: PACEMAKER: MEASUREMENTS (cm) DIASTOLIC (NORMALS) SYSTOLIC (NORMALS) IVSd 1.0 (0.6-1.2) LA Diam 2.7 (1.9-4.0) LVEF 45-50% LVIDd 4.7 (3.5-5.7) LVIDs 4.0 (2.0-3.5) %FS % LVPWd 1.1 (0.6-1.2) Ao Diam 2.6 (2.0-3.7) 2 DIMENSIONAL ASSESSMENT: RIGHT ATRIUM: NORMAL LEFT ATRIUM: ENLARGED RIGHT VENTRICLE: NOT WELL SEEN LEFT VENTRICLE: NORMAL TRICUSPID VALVE: MODERATE TRICUSPID REGURGITATION MITRAL VALVE: MODERATE MITRAL REGURGITATION PULMONIC VALVE: PULMONIC INSUFFICIENCY AORTIC VALVE: NORMAL PERICARDIAL EFFUSION: NONE AORTIC ROOT: NORMAL LEFT VENTRICULAR WALL MOTION: MILD GLOBAL HYPOKINESIS DOPPLER/COLOR FLOW: SEE BELOW COMMENTS: 1. POOR STUDY 2. LEFT VENTRICULAR EJECTION FRACTION IS MILDLY DEPRESSED 45-50% WITH POSSIBLE LEFT VENTRICULAR NONCOMPACTION 3. LEFT ATRIAL ENLARGEMENT 4. MODERATE TO SEVERE TRICUSPID REGURGITATION 5. MODERATE TO SEVERE MITRAL REGURGITATION 6. RECOMMEND TRANSESOPHAGEAL ECHOCARDIOGRAM TECHNOLOGIST: SHITAL ARAUJO
[2023-02-28] MEDS ORDERED: MAGNESIUM SULFATE 1 gm IVPB 1 GM/100 ML BAG IV ONE (07:00)
--- NOTE | 2023-02-28 08:24 | P.PN ---
Date of Service: 02/28/23 Subjective Patient is doing well. We will go ahead and stepdown to [facility] unit. Patient will need to continue with physical therapy. Clinical symptoms are improving Physical Examination - Vital Signs reviewed - Physical Exam General: Alert, In no apparent distress Respiratory: basilar crackles; rhonchi R>L Cardiovascular: Regular rate/rhythm, Normal S1 S2 Gastrointestinal: Normal bowel sounds, No tenderness Musculoskeletal: No tenderness Neurological: No focal deficits Assessment and Plan - Problems (Diagnosis) (1) Pneumonia Current Visit: Yes Status: Acute Pneumonia type: due to unspecified organism Laterality: right Lung location: lower lobe of lung Qualified Code(s): J18.9 - Pneumonia, unspecified organism (2) Sepsis Current Visit: Yes Status: Acute Sepsis type: sepsis due to unspecified organism Sepsis acute organ dysfunction status: with acute organ dysfunction Severe sepsis acute organ dysfunction typ e: acute renal failure Severe sepsis shock status: with septic shock (3) Hypertension Current Visit: No Status: Chronic Hypertension type: primary hypertension Qualified Code(s): I10 - Essential (primary) hypertension (4) RIGOBERTO (acute kidney injury) Current Visit: Yes Status: Acute (5) Anemia Current Visit: Yes Status: Chronic Qualifiers: Anemia type: unspecified type Qualified Code(s): D64.9 - Anemia, unspecified (6) Hypokalemia Current Visit: Yes Status: Acute (7) Hyponatremia Current Visit: Yes Status: Acute (8) Multiple myeloma Current Visit: Yes Status: Chronic Multiple myeloma remission status: unspecified Qualified Code(s): C90.00 - Multiple myeloma not having achieved remission (9) Acute liver failure Current Visit: Yes Status: Acute Hepatic coma status: without hepatic coma Qualified Code(s): K72.00 - Acute and subacute hepatic failure without coma (10) Acute heart failure Current Visit: Yes Status: Acute (11) Adrenal crisis Current Visit: Yes Status: Acute - Plan Plan: 1. Wean off of AIRVO and place on O2; continue with IV antibiotics 2. Cultures negative 3. Repeat chest x-ray 4. CT scan of the chest reviewed; large consolidated pneumonia-continue with abx 5. Appreciate pulmonary consultation 6. Continue with nebs as needed 7. Continue with gentle hydration 8. Repeat labs 9. Continue with IV steroids 10. Continue with electrolytes 11. GI and DVT prophylaxis
[2023-02-28] MEDS: APIXABAN 2.5 MG TABLET PO SCH (08:29)
[2023-02-28] MEDS: POMALYST 3 MG PO SCH (08:29)
[2023-02-28] MEDS: ENSURE HIGH PROTEIN 237 ML CAN PO SCH ×3 (08:30→20:36)
[2023-02-28] MEDS: CEFEPIME 2 GM in NA CHLORIDE 0.9% 100 ML IV SCH (08:50)
[2023-02-28] MEDS ORDERED: POTASSIUM CL SA 10 MEQ TAB PO ONE (09:00)
--- NOTE | 2023-02-28 10:24 | P.PN ---
Subjective Date of Service: 02/28/23 Chief Complaint: Pneumonia, Septic Shock Subjective: Improving (Patient is doing better is off vasopressors x-ray shows an effusion on the right side) Review of Systems General: Weakness Respiratory: Cough, Shortness of Breath Physical Examination - Vital Signs Temperature: 97.9 F Blood Pressure: 139/78 Pulse: 49 Respirations: 24 Pulse Ox (%): 97 - Physical Exam General: Alert, In no apparent distress, Oriented x3 Respiratory: Diminished (Crackles and diminished on the right side), Crackles/rales Assessment And Plan - Current Problems (Diagnosis) (1) Pneumonia Current Visit: Yes Status: Acute Plan: Patient is 58 years of age admitted with severe community-acquired pneumonia hemodynamically stable off vasopressors count is now normal x-ray shows worsening haziness on the right side I suspect that she has a pleural effusion we will order a bilateral decubitus of the chest may need a thoracentesis patient is mildly anemic renal function is improving signs oxygenation satisfactory cultures so far negative patient is on low-dose hydrocortisone and Lasix Qualifiers: Pneumonia type: due to unspecified organism Physician Review: Patient Assessed, Agree with Above Assessment and Plan
--- NOTE | 2023-02-28 13:26 | RAD REPORT ---
EXAM DESCRIPTION: RAD - Chest Lateral Decubitus - 02/28/2023 1:05 pm CLINICAL HISTORY: Pleurall effusion FINDINGS: Right base is hazy consistent with lung consolidation. In addition there is a partially layering pleural effusion which probably is small to moderate. Ultrasound would be helpful for further evaluation
--- NOTE | 2023-02-28 20:17 | CON ---
Date of Consultation: 02/28/2023 Reason For Consultation: Valvular heart disease. History Of Present Illness: This is a 58-year-old female. She presented to the emergency room with shortness of breath. She had pneumonia, was in septic shock. She had an echocardiogram which showed a borderline low ejection fraction, severe tricuspid regurgitation and moderate to severe mitral lashawn ve regurgitation. I recommended transesophageal echocardiogram. Hence, I was consulted. I saw her by bedside. She is still in ICU, still requiring oxygen, having some shortness of breath. Past Medical History: Hypertension, multiple myeloma. Medications: Refer to reconciliation sheet for detailed list. Allergies: NO KNOWN DRUG ALLERGIES. Family History: No premature coronary artery disease or cancer. Social History: She is an active smoker. Does not drink or use any drugs. Review of Systems: All systems reviewed and they were negative except for what mentioned in HPI. Physical Examination: Vital Signs: Reviewed. Head and Neck: Pupils are equal and reactive to light. Intact eye movements. No JVD. No cervical lymphadenopathy. Neck is supple. Thyroid is not enlarged. Lungs: Decreased breathing sounds with rhonchi bilaterally. No accessory muscle use. Heart: Regular rate and rhythm with holosystolic murmur, diffuse. Abdomen: Soft, nontender. Bowel sounds positive. No organomegaly. No masses or hernia. No rigidi ty or rebound. Extremities: Positive for edema. No clubbing or cyanosis. Intact pulses. Skin: No rash. Neurological: Alert, awake. No acute focal deficits appreciated. Investigations: Labs were reviewed. Assessment And Recommendations: 1.Moderate to severe mitral valve regurgitation. It is probably more of a severe regurgitation. I recommend transesophageal echocardiogram to be performed once the patient is clinically more stable. 2.Septic shock due to pneumonia and she is hemodynamically stable. 3.Congestive heart failure. 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 I will do a transesop hageal echocardiogram to further confirm and if that was not the case, then she will need ischemic wo rkup which can be done as an outpatient to evaluate the cause of borderline low ejection fraction. SR/MODL Voice ID: [id number] Report ID: [id number]
[2023-02-28] MEDS: ZOLPIDEM TARTRATE 10 MG TABLET PO PRN (22:28)
[2023-02-28] MEDS: NA CHLORIDE 0.9% 1,000 ML IV SCH (23:36)
[2023-03-01] MEDS: FUROSEMIDE 20 MG/ 2ML VIAL IV SCH (01:21)
[2023-03-01 06:40] LABS: Absolute Lymphocytes (CBC) 0.5 K/uL (0.7-4.9); Hematocrit 26.6 % (36.0-45.0); Lymphocytes % 8.1 % (15.3-44.8); MPV 9.6 fL (7.6-11.3); RBC Red Blood Cell Count 3.02 M/uL (3.86-4.86)
[2023-03-01 07:00] LABS: Albumin 1.9 g/dL (3.4-5.0); Bilirubin Total 0.9 mg/dL (0.2-1.0); Magnesium 1.6 mg/dL (1.6-2.4); Protein, Total 5.6 g/dL (6.4-8.2)
[2023-03-01 07:04] LABS: Potassium 2.5 mEq/L (3.5-5.1)
[2023-03-01] MEDS ORDERED: MAGNESIUM SULFATE 1 gm IVPB 1 GM/100 ML BAG IV ONE (07:30)
[2023-03-01] MEDS: ENSURE HIGH PROTEIN 237 ML CAN PO SCH ×3 (07:46→19:53)
[2023-03-01] MEDS: KCL 20 MEQ/100 mL IVPB 20 MEQ/100 ML BAG IV SCH ×3 (07:46→15:18)
[2023-03-01] MEDS: POMALYST 3 MG PO SCH (08:12)
--- NOTE | 2023-03-01 09:03 | RAD REPORT ---
EXAM DESCRIPTION: RAD - Chest Single View - 03/01/2023 6:01 am CLINICAL HISTORY: pneumonia Chest pain. COMPARISON: Chest Single View dated 02/27/2023; Chest Single View dated 02/26/2023; Chest Single View dated 02/24/2023; Chest Single View dated 02/24/2023 FINDINGS: Portable technique limits examination quality. Moderate right pleural effusion with no real change since comparative study. Mild to moderate bilater al pulmonary opacities appear stable as well. The heart is mildly enlarged in size. Left-sided venous catheter has tip in the SVC. IMPRESSION: Stable chest since 02/27/2023 study.
[2023-03-01] MEDS ORDERED: predniSONE 20 MG TAB PO ONE (10:00)
[2023-03-01] MEDS: Levofloxacin 750mg IV 750 MG/150 ML BAG IV SCH (12:40)
[2023-03-01] MEDS: FUROSEMIDE 40 MG TABLET PO SCH (16:00)
[2023-03-01] MEDS: ZOLPIDEM TARTRATE 10 MG TABLET PO PRN (20:01)
[2023-03-01] MEDS: predniSONE 20 MG TAB PO SCH (20:01)
[2023-03-01 21:53] LABS: Potassium 3.4 mEq/L (3.5-5.1)
[2023-03-02 06:38] LABS: Phosphorus 3.8 mg/dL (2.5-4.9); Potassium 3.7 mEq/L (3.5-5.1)
[2023-03-02] MEDS ORDERED: POTASSIUM CL SA 10 MEQ TAB PO ONE ×2 (07:01→09:00)
--- NOTE | 2023-03-02 07:16 | P.PN ---
Date of Service: 03/01/23 Subjective Patient's family is at bedside. Patient is clinically doing much better. Her symptoms are improved. We are working on getting her strength built up with physical therapy. We will encourage the nurses to get her out of bed and ambulate her. If we need to have my assistance I will be happy help ambulator. She did have a small pleural effusion. We will talk with radiology regarding thoracentesis. Physical Examination - Vital Signs reviewed - Physical Exam General: Alert, In no apparent distress Respiratory: Diminished breath sounds and rhonchi's of the right lower lobe but otherwise clear Cardiovascular: Regular rate/rhythm, Normal S1 S2 Gastrointestinal: Normal bowel sounds, No tenderness Musculoskeletal: No tenderness Neurological: No focal deficits Assessment and Plan - Problems (Diagnosis) (1) Pneumonia Current Visit: Yes Status: Acute Pneumonia type: due to unspecified organism Laterality: right Lung location: lower lobe of lung Qualified Code(s): J18.9 - Pneumonia, unspecified organism (2) Sepsis Current Visit: Yes Status: Acute Sepsis type: sepsis due to unspecified organism Sepsis acute organ dysfunction status: with acute organ dysfunction Severe sepsis acute organ dysfunction type: acute renal failure Severe sepsis shock status: with septic shock (3) Hypertension Current Visit: No Status: Chronic Hypertension type: primary hypertension Qualified Code(s): I10 - Essential (primary) hypertension (4) RIGOBERTO (acute kidney injury) Current Visit: Yes Status: Acute (5) Anemia Current Visit: Yes Status: Chronic Qualifiers: Anemia type: unspecified type Qualified Code(s): D64.9 - Anemia, unspecified (6) Hypokalemia Current Visit: Yes Status: Acute (7) Hyponatremia Current Visit: Yes Status: Acute (8) Multiple myeloma Current Visit: Yes Status: Chronic Multiple myeloma remission status: unspecified Qualified Code(s): C90.00 - Multiple myeloma not having achieved remission (9) Acute liver failure Current Visit: Yes Status: Acute Hepatic coma status: without hepatic coma Qualified Code(s): K72.00 - Acute and subacute hepatic failure without coma (10) Acute heart failure Current Visit: Yes Status: Acute (11) Adrenal crisis Current Visit: Yes Status: Acute - Plan Plan: 1. Continue on 3 L oxygen. We will wean her down to room air today. 2.Culture results are negative. If she does have a significant amount of effusion on evaluation of her pleural effusion on Friday then we probably can get thoracentesis and send the fluid off for culture as well 3. Repeat chest x-ray 4. Increase physical therapy 5. Appreciate pulmonary consultation 6. Continue with nebs as needed 7. Repeat labs 8. Continue with IV steroids 9. Continue with electrolytes 10. GI and DVT prophylaxis
--- NOTE | 2023-03-02 07:22 | P.PN ---
Date of Service: 03/02/23 Subjective Plan to do an ultrasound today to evaluate the amount of pleural effusion patient has. We will touch base with interventional radiology as well. Encourage patient to get out of bed and ambulate. We will discuss her ambulation status with the nursing staff as well. Physical Examination - Vital Signs reviewed - Physical Exam General: Alert, In no apparent distress Respiratory: Diminished breath sounds and rhonchi's of the right lower lobe but otherwise clear Cardiovascular: Regular rate/rhythm, Normal S1 S2 Gastrointestinal: Normal bowel sounds, No tenderness Musculoskeletal: No tenderness Neurological: No focal deficits Assessment and Plan - Problems (Diagnosis) (1) Pneumonia Current Visit: Yes Status: Acute Pneumonia type: due to unspecified organism Laterality: right Lung location: lower lobe of lung Qualified Code(s): J18.9 - Pneumonia, unspecified organism (2) Sepsis Current Visit: Yes Status: Acute Sepsis type: sepsis due to unspecified organism Sepsis acute organ dysfunction status: with acute organ dysfunction Severe sepsis acute organ dysfunction type: acute renal failure Severe sepsis shock status: with septic shock (3) Hypertension Current Visit: No Status: Chronic Hypertension type: primary hypertension Qualified Code(s): I10 - Essential (primary) hypertension (4) RIGOBERTO (acute kidney injury) Current Visit: Yes Status: Acute (5) Anemia Current Visit: Yes Status: Chronic Qualifiers: Anemia type: unspecified type Qualified Code(s): D64.9 - Anemia, unspecified (6) Hypokalemia Current Visit: Yes Status: Acute (7) Hyponatremia Current Visit: Yes Status: Acute (8) Multiple myeloma Current Visit: Yes Status: Chronic Multiple myeloma remission status: unspecified Qualified Code(s): C90.00 - Multiple myeloma not having achieved remission (9) Acute liver failure Current Visit: Yes Status: Acute Hepatic coma status: without hepatic coma Qualified Code(s): K72.00 - Acute and subacute hepatic failure without coma (10) Acute heart failure Current Visit: Yes Status: Acute (11) Adrenal crisis Current Visit: Yes Status: Acute - Plan Plan: 1. Continue on 3 L oxygen. We will wean her down to room air today. 2.Culture results are negative. If she does have a significant amount of effusion on evaluation of her pleural effusion on Friday then we probably can get thoracentesis and send the fluid off for culture as well 3. Repeat chest x-ray 4. Increase physical therapy 5. Appreciate pulmonary consultation 6. Continue with nebs as needed 7. Repeat labs 8. Continue with IV steroids 9. Continue with electrolytes 10. GI and DVT prophylaxis
[2023-03-02] MEDS: FUROSEMIDE 40 MG TABLET PO SCH ×2 (08:52→16:23)
[2023-03-02] MEDS: predniSONE 20 MG TAB PO SCH ×2 (08:53→20:50)
[2023-03-02] MEDS: POMALYST 3 MG PO SCH (08:54)
[2023-03-02] MEDS: ENSURE HIGH PROTEIN 237 ML CAN PO SCH ×3 (08:54→20:51)
[2023-03-02] MEDS: BENZONATATE 100 MG CAP PO PRN (09:00)
[2023-03-02] MEDS: NA CHLORIDE 0.9% 1,000 ML IV SCH (09:56)
[2023-03-02 20:48] LABS: Protime INR 1.87
[2023-03-02] MEDS: ZOLPIDEM TARTRATE 10 MG TABLET PO PRN (20:50)
--- NOTE | 2023-03-03 02:54 | P.PN ---
Date of Service: 03/03/23 Subjective Hoping to get thoracentesis performed today.Consulted radiology/ultrasound- guided thoracentesis. With it being the holiday I am not sure if it will be able to get done today. Continue to gently diurese patient. Continue with antibiotic therapy. Physical Examination - Vital Signs reviewed - Physical Exam General: Alert, In no apparent distress Respiratory: Diminished breath sounds and rhonchi's of the right lower lobe but otherwise clear Cardiovascular: Regular rate/rhythm, Normal S1 S2 Gastrointestinal: Normal bowel sounds, No tenderness Musculoskeletal: No tenderness Neurological: No focal deficits Assessment and Plan - Problems (Diagnosis) (1) Pneumonia Current Visit: Yes Status: Acute Pneumonia type: due to unspecified organism Laterality: right Lung location: lower lobe of lung Qualified Code(s): J18.9 - Pneumonia, unspecified organism (2) Sepsis Current Visit: Yes Status: Acute Sepsis type: sepsis due to unspecified organism Sepsis acute organ dysfunction status: with acute organ dysfunction Severe sepsis acute organ dysfunction type: acute renal failure Severe sepsis shock status: with septic shock (3) Hypertension Current Visit: No Status: Chronic Hypertension type: primary hypertension Qualified Code(s): I10 - Essential (primary) hypertension (4) RIGOBERTO (acute kidney injury) Current Visit: Yes Status: Acute (5) Anemia Current Visit: Yes Status: Chronic Qualifiers: Anemia type: unspecified type Qualified Code(s): D64.9 - Anemia, unspecified (6) Hypokalemia Current Visit: Yes Status: Acute (7) Hyponatremia Current Visit: Yes Status: Acute (8) Multiple myeloma Current Visit: Yes Status: Chronic Multiple myeloma remission status: unspecified Qualified Code(s): C90.00 - Multiple myeloma not having achieved remission (9) Acute liver failure Current Visit: Yes Status: Acute Hepatic coma status: without hepatic coma Qualified Code(s): K72.00 - Acute and subacute hepatic failure without coma (10) Acute heart failure Current Visit: Yes Status: Acute (11) Adrenal crisis Current Visit: Yes Status: Acute - Plan Plan: 1. Continue on 3 L oxygen. We will wean her down to room air today. 2. Culture results are negative. Await to see if we can do thoracentesis today. 3. Chest x-ray with persistent pleural effusion 4. Continue with physical therapy 5. Appreciate pulmonary consultation 6. Continue with nebs as needed 7. Continue with electrolytes 8. Continue with IV steroids; change to oral steroids 9. GI and DVT prophylaxis
[2023-03-03 04:16] LABS: Absolute Lymphocytes (CBC) 0.5 K/uL (0.7-4.9); Hematocrit 23.8 % (36.0-45.0); Lymphocytes % 9.6 % (15.3-44.8); MCV 88.5 fL (80-100); MPV 9.6 fL (7.6-11.3); RBC Red Blood Cell Count 2.68 M/uL (3.86-4.86)
[2023-03-03 04:22] VITALS: BMI 33.5
[2023-03-03 04:35] LABS: Bilirubin Total 0.9 mg/dL (0.2-1.0); Magnesium 1.8 mg/dL (1.6-2.4); Phosphorus 3.2 mg/dL (2.5-4.9); Potassium 3.9 mEq/L (3.5-5.1); Protein, Total 5.4 g/dL (6.4-8.2)
--- NOTE | 2023-03-03 08:11 | RAD REPORT ---
EXAM DESCRIPTION: Josianet Single View03/03/2023 6:08 am CLINICAL HISTORY: Chest pain COMPARISON: March 01, 2023 FINDINGS: Right pleural effusion is without obvious change. Right lower lobe opacity unchanged. There may be mild left lung opacities. Heart is mildly enlarged. Central venous line in place
[2023-03-03] MEDS: POMALYST 3 MG PO SCH (08:42)
[2023-03-03] MEDS: ENSURE HIGH PROTEIN 237 ML CAN PO SCH ×4 (08:42→20:15)
[2023-03-03] MEDS: FUROSEMIDE 40 MG TABLET PO SCH ×3 (08:42→16:11)
[2023-03-03] MEDS: predniSONE 20 MG TAB PO SCH ×2 (08:42→20:15)
[2023-03-03] MEDS ORDERED: MAGNESIUM SULFATE 1 gm IVPB 1 GM/100 ML BAG IV ONE (09:00)
[2023-03-03] MEDS ORDERED: KCL 20 MEQ/100 mL IVPB 20 MEQ/100 ML BAG IV ONE (09:00)
[2023-03-03] MEDS: levoFLOXacin 750 MG TAB PO SCH (10:38)
--- NOTE | 2023-03-03 11:46 | RAD REPORT ---
EXAM DESCRIPTION: US - Chest - 03/03/2023 9:33 am CLINICAL HISTORY: Right pleural effusion COMPARISON: Recent chest x-rays and CT and chest February 25, 2023 FINDINGS: The patient presented for a right thoracentesis. Very small right pleural effusion is present. The maximum width 1 centimeter Right lower lobe consolidation IMPRESSION: Very small right pleural effusion. Thoracentesis not performed. Right lower lobe consolidation
[2023-03-03] MEDS ORDERED: levoFLOXacin 750 MG TAB PO SCH (13:00)
[2023-03-03] MEDS: ZOLPIDEM TARTRATE 10 MG TABLET PO PRN (20:20)
[2023-03-04] MEDS: NA CHLORIDE 0.9% 1,000 ML IV SCH (01:07)
[2023-03-04 08:31] LABS: Magnesium 1.9 mg/dL (1.6-2.4); Potassium 3.5 mEq/L (3.5-5.1)
[2023-03-04] MEDS: POMALYST 3 MG PO SCH (09:00)
[2023-03-04] MEDS: ENSURE HIGH PROTEIN 237 ML CAN PO SCH ×2 (09:00→13:00)
[2023-03-04] MEDS ORDERED: POTASSIUM CL SA 10 MEQ TAB PO ONE (09:00)
[2023-03-04] MEDS: FUROSEMIDE 40 MG TABLET PO SCH ×2 (09:39→17:00)
[2023-03-04] MEDS: levoFLOXacin 750 MG TAB PO SCH (09:40)
[2023-03-04] MEDS: predniSONE 20 MG TAB PO SCH (09:41)
[2023-03-04 10:25] VITALS: O2SAT 99
[2023-03-04 13:02] LABS: Hematocrit 26.8 % (36.0-45.0)
--- NOTE | 2023-03-04 14:34 | P.DS ---
Admission Date: 02/24/23 Discharge Date: 03/04/23 Disposition: DC HOME/HOME HEALTH CARE Discharge Condition: GOOD Reason for Admission: Pneumonia, Septic Shock Consultations: 1. Pulmonology 2. Cardiology Hospital Course: DIAGNOSES: # Septic Shock secondary to Right Lower Lobe Pneumonia - resolved # Acute Systolic Congestive Heart Failure with Reduced Ejection Fraction (LVEF 45-50 %) - improved # Possible Adrenal Crisis # KDIGO Stage II Acute Kidney Injury due to above - improved # Shock Liver due to above - resolved # Multiple Myeloma # Hyponatremia # Hypophosphatemia # Hypokalemia # Moderate-Severe Mitral Regurgitation # Moderate-Severe Tricuspid Regurgitation # History of Hypertension # Tobacco Use Disorder HOSPITAL COURSE: Ms. Nanci Dimas is a pleasant 58 year old female with a past medical history significant for multiple myeloma and hypertension who was admitted to the [facility] on 02/24/2023 for fatigue and hypotension. She was admitted to the Medicine service. Her initial chest x-ray revealed, "opacification of the mid and lower right hemithorax probably representing a combination of pleural effusion and pneumonia. This should be followed until it has cleared to help exclude a post obstructive process/underlying mass." She was diagnosed with septic shock secondary to pneumonia. She was started on IV a ntibiotics and given 30 mL/kg fluid bolus. Despite the fluid bolus, she remained hypotensive and required vasopressor support. Subsequent CT chest revealed, "dense right lower lobe consolidation probably represents pneumonia in the appropriate clinical setting. Would suggest close clinical and imaging follow-up to ensure resolution." There was thought to drain her pleural effusion via thoracentesis; however, when an ultrasound was performed, there was not enough fluid to drain. Over the course of her hospitalization, her symptoms improved significantly. Dr. Stone has cleared her for discharge with outpatient follow-up. Additionally, there was concern for adrenal crisis during her hospitalization. She reports taking dexamethasone 40 mg twice weekly, as prescribed by her oncologist. She was started on prednisone while hospitalized. She has a scheduled follow-up appointment with her oncologist on 03/06/2023 and will discuss her steroid regimen with him at this appointment. She was discharged with a 5 day supply of prednisone to prevent adrenal crisis in the interim. Of note, her transthoracic echocardiogram revealed, "1. poor study 2. left ventricular ejection fraction is mildly depressed 45-50% with possible left ventricular noncompaction 3. left atrial enlargement 4. moderate to severe tricuspid regurgitation 5. moderate to severe mitral regurgitation 6. recommend transesophageal echocardiogram." I reviewed this study with Dr. Mueller, who recommended that the transesophageal echocardiogram be performed as an outpatient. On 03/04/2023, she was seen on rounds and deemed medically stable for discharge. She was discharged with instructions to schedule follow-up appointments with her PCP (Dr. Dean), with Cardiology (Dr. Mueller), with her Oncologist (Dr. Bradshaw), and with Pulmonology (Dr. Stone). She was advised to follow-up with Pulmonology in about 4 weeks for a repeat chest x-ray to ensure pneumonia has resolved. She was advised to follow-up with Cardiology for an outpatient transesophageal echocardiogram. She was provided prescriptions for levofloxacin, furosemide, benzonatate, and prednisone. She was given the opportunity to ask questions and reported no further questions. Furthermore, all questions were answered to the best of my ability. A copy of this discharge summary will be sent to the above providers to facilitate continuity of care. Today, I personally spent 35 minutes on her case, of which greater than 50% of the time was spent in patient education, counseling, and coordination of care as described above. Vital Signs/Physical Exam: Temp Pulse Resp BP Pulse Ox 97.2 F 76 16 125/75 99 03/04/23 12:00 03/04/23 12:00 03/04/23 12:00 03/04/23 12:00 03/04/23 12:00 Laboratory Data at Discharge: WBC 4.90 thou/uL (4.3-10.9) 03/03/23 03:00 Hgb 8.9 g/dL (12.0-15.0) L 03/04/23 12:55 Hct 26.8 % (36.0-45.0) L 03/04/23 12:55 Plt Count 214 thou/uL (152-406) 03/03/23 03:00 PT 20.6 SECONDS (9.5-12.5) H 03/02/23 18:41 INR 1.87 03/02/23 18:41 APTT 27.8 SECONDS (24.3-36.9) 03/02/23 18:41 Sodium 144 mEq/L (136-145) 03/04/23 07:35 Potassium 3.5 mEq/L (3.5-5.1) 03/04/23 07:35 BUN 40 mg/dL (7-18) H 03/04/23 07:35 Creatinine 1.17 mg/dL (0.55-1.02) H 03/04/23 07:35 Glucose 111 mg/dL (74-106) H 03/04/23 07:35 Phosphorus Cancelled 03/03/23 05:00 Magnesium 1.9 mg/dL (1.6-2.4) 03/04/23 07:35 Total Bilirubin 0.9 mg/dL (0.2-1.0) 03/03/23 03:00 AST 14 U/L (15-37) L 03/03/23 03:00 ALT 42 U/L (13-56) 03/03/23 03:00 Alkaline Phosphatase 60 U/L (45-117) 03/03/23 03:00 Triglycerides 212 mg/dL (<150) H 02/25/23 04:50 Cholesterol 129 mg/dL (<200) 02/25/23 04:50 HDL Cholesterol 12 mg/dL (40-60) L 02/25/23 04:50 Cholesterol/HDL Ratio 10.75 02/25/23 04:50 Home Medications: Apixaban [Eliquis *] 1 tab PO BID 02/24/23 Pomalidomide [Pomalyst] 3 mg PO DAILY 02/24/23 Zolpidem Tartrate [Ambien*] 10 mg PO BEDTIME PRN PRN 02/24/23 Benzonatate [Tessalon Perle*] 100 mg PO TID PRN 7 Days #20 cap 03/04/23 Furosemide [Lasix*] 40 mg PO DAILY #30 tab 03/04/23 levoFLOXacin [Levaquin*] 750 mg PO DAILY 5 Days #5 tab 03/04/23 predniSONE [Deltasone*] 10 mg PO BID 5 Days #10 tab 03/04/23 New Medications: predniSONE [Deltasone*] 10 mg PO BID 5 Days #10 tab Furosemide [Lasix*] 40 mg PO DAILY #30 tab levoFLOXacin [Levaquin*] 750 mg PO DAILY 5 Days #5 tab Benzonatate [Tessalon Perle*] 100 mg PO TID PRN 7 Days #20 cap PRN Reason: Cough Physician Discharge Instructions: 1. Please call and schedule a follow-up appointment with your PCP (Dr. Dean) in 3-5 days 2. Please call and schedule a follow-up appointment with Pulmonology (Dr. Stone) in 3-5 days - Please have him schedule you for a repeat chest x-ray in 3-4 weeks to make sure your pneumonia has healed 3. Please call and schedule a follow-up appointment with Cardiology (Dr. Mueller) in 5-7 days - Please have him schedule you for the ultrasound of your heart, which is performed with a tool similar to an upper endoscopy. This study is to evaluate your leaking valves. - This study is called: Transesophageal Echocardiogram 4. Please attend your scheduled appointment with your Oncologist (Dr. Bradshaw) on 03/06/2023 - As we discussed, please make sure to discuss your steroid regimen with him at this appointment Diet: AHA Activity: Fall precautions Followup: Km Stone MD [ACTIVE - CAN ADMIT] - Abdi Mueller MD [ACTIVE - CAN ADMIT] - Sheila Dean MD [OUTSIDE PHYSICIAN] - Jocelyn Bradshaw MD [OUTSIDE PHYSICIAN] - Time spent managing pt's care (in minutes): 35
[2023-03-04 16:22] VITALS: BP 130/78; TEMP 97.5
== END 2023-03-04 17:30 | disposition home health service (06) | DRG 871 ==
LOC: ER 15:39 → ERHOLD 18:45 → 3RD-ICU 20:07 → 4TH 02-28 21:20
PROVIDERS: ADMIT Hospitalist; ATTEND Internal Medicine
PROC: 02HV33Z Insertion of Infusion Device into Superior Vena Cava, Percutaneous Approach (ICD-10-PCS; 2023-02-24)
PROC: 5A0935A Assistance with Respiratory Ventilation, Less than 24 Consecutive Hours, High Flow/Velocity Cannula (ICD-10-PCS; principal; 2023-02-26)
PROC: 3E043XZ Introduction of Vasopressor into Central Vein, Percutaneous Approach (ICD-10-PCS; 2023-02-26)
PROC: 3E04329 Introduction of Other Anti-infective into Central Vein, Percutaneous Approach (ICD-10-PCS; 2023-02-26)
DX: A41.9 Sepsis, unspecified organism (principal); I50.21 Acute systolic (congestive) heart failure; J18.9 Pneumonia, unspecified organism; R65.21 Severe sepsis with septic shock; K72.00 Acute and subacute hepatic failure without coma; N17.9 Acute kidney failure, unspecified; E87.1 Hypo-osmolality and hyponatremia; E27.2 Addisonian crisis; Z87.891 Personal history of nicotine dependence; D64.9 Anemia, unspecified; E87.6 Hypokalemia; Z85.79 Personal history of other malignant neoplasms of lymphoid, hematopoietic and related tissues; I11.0 Hypertensive heart disease with heart failure; I34.0 Nonrheumatic mitral (valve) insufficiency; I07.1 Rheumatic tricuspid insufficiency
CPT/HCPCS: 36415; 70450; 71045; 71046; 71250; 72125; 76604; 80048; 80053; 80061; 80074; 81001; 82533; 82607; 82728; 82805; 83540; 83605; 83735; 83880; 83930; 83935; 84100; 84145; 84300; 84443; 84466; 84484; 85014; 85018; 85025; 85610; 85730; 87040; 87070; 87205; 93005; 93306; 94640; 94660; 97110; 97116; 97162; 97530; 99285; J0692; J0696; J1720; J1940; J3475; J3480; J7030; J7050; J7512; J7613; P9047